=== PATIENT | female | born 1955 | race Caucasian/White ===

== ENCOUNTER 2016-09-11 09:41 | Outpatient (CLI) | payer MEDICARE, BC | END 2016-09-11 09:42 | disposition home or self-care (01) | DX: I10 Essential (primary) hypertension (principal); E78.5 Hyperlipidemia, unspecified; R73.01 Impaired fasting glucose; G35 Multiple sclerosis ==

== ENCOUNTER 2017-01-08 08:00 | Outpatient (CLI) | payer MEDICARE, BC ==
[2017-01-08 17:48] LABS: BILIRUBIN,URINE NEGATIVE (NEGATIVE); PH,URINE 6.5 PH (5.0-7.5)
[2017-01-08 18:21] LABS: WBC,URINE >25 /HPF (0-5)
[2017-01-08 18:22] LABS: UR CULTURE IF IND INDICATED
== END 2017-01-08 08:01 | disposition home or self-care (01) ==
LOC: LAB.F 08:00
PROVIDERS: ATTEND Physician Assistant Medical
DX: N31.9 Neuromuscular dysfunction of bladder, unspecified (principal); N39.0 Urinary tract infection, site not specified
CPT/HCPCS: 81001; 87077; 87086

== ENCOUNTER 2017-01-18 08:15 | Outpatient (CLI) | payer MEDICARE, BC ==
[2017-01-18 11:41] LABS: BILIRUBIN,URINE NEGATIVE (NEGATIVE)
[2017-01-18 12:25] LABS: UR CULTURE IF IND NOT INDICATED; WBC,URINE 0-3 /HPF (0-5)
== END 2017-01-18 08:16 | disposition home or self-care (01) ==
LOC: LAB.F 08:15
PROVIDERS: ATTEND Physician Assistant Medical
DX: N39.0 Urinary tract infection, site not specified (principal)
CPT/HCPCS: 81001; 87086

== ENCOUNTER 2017-06-28 09:40 | Outpatient (CLI) | payer MEDICARE, BC ==
[2017-06-28 17:24] LABS: BILIRUBIN,URINE NEGATIVE (NEGATIVE); GLUCOSE, URINE (UA) NEGATIVE (NEGATIVE); KETONES,URINE (UA) 15 mg/dL (NEGATIVE); LEUKOCYTE ESTERASE, URINE NEGATIVE (NEGATIVE); NITRITE,URINE NEGATIVE (NEGATIVE); OCCULT BLOOD,URINE NEGATIVE (NEGATIVE); PH,URINE 6.5 PH (5.0-7.5); PROTEIN,URINE NEGATIVE (NEGATIVE); UROBILINOGEN,URINE 0.2 (NORMAL) E.U./dL (NORMAL)
[2017-06-28 17:29] LABS: CLARITY,URINE CLEAR (CLEAR)
[2017-06-28 17:30] LABS: BACTERIA,URINE Few /HPF (None Seen); RBC,URINE 0-5 /HPF (0-5); SQUAMOUS EPITHELIAL CELL,UR FEW Squamous (<= Few)
== END 2017-06-28 09:41 | disposition home or self-care (01) ==
LOC: LAB.R 09:40
PROVIDERS: ATTEND Physician Assistant Medical
DX: N39.0 Urinary tract infection, site not specified (principal)
CPT/HCPCS: 81001; 87077; 87086

== ENCOUNTER 2017-08-13 08:00 | Outpatient (CLI) | payer MEDICARE, BC ==
[2017-08-13 17:52] LABS: BILIRUBIN,URINE NEGATIVE (NEGATIVE); GLUCOSE, URINE (UA) NEGATIVE (NEGATIVE); KETONES,URINE (UA) NEGATIVE (NEGATIVE); LEUKOCYTE ESTERASE, URINE TRACE (NEGATIVE); NITRITE,URINE NEGATIVE (NEGATIVE); OCCULT BLOOD,URINE NEGATIVE (NEGATIVE); PROTEIN,URINE NEGATIVE (NEGATIVE); UROBILINOGEN,URINE 0.2 (NORMAL) E.U./dL (NORMAL)
[2017-08-13 18:25] LABS: CLARITY,URINE HAZY (CLEAR); RBC,URINE None Seen /HPF (0-5)
[2017-08-13 18:26] LABS: BACTERIA,URINE Few /HPF (None Seen); SQUAMOUS EPITHELIAL CELL,UR NONE SEEN (<= Few)
== END 2017-08-13 08:01 | disposition home or self-care (01) ==
LOC: LAB.F 08:00
PROVIDERS: ATTEND Physician Assistant Medical
DX: N39.0 Urinary tract infection, site not specified (principal)
CPT/HCPCS: 81001; 87077; 87086

== ENCOUNTER 2017-09-03 11:01 | Outpatient (CLI) | payer MEDICARE, BC ==
--- NOTE | 2017-09-03 12:58 | Ultrasound Report ---
RETROPERITONEAL ULTRASOUND: 09/03/2017 HISTORY: Neurogenic bladder. COMPARISON: 03/09/2016. FINDINGS: Real-time scanning by the wind farm support specialist with saved static images reviewed. FINDINGS: The study is somewhat limited due to the patient's body habitus. Right kidney 10.5 x 5.5 x 4.4 cm. Superior pole cyst 1.1 x 1.1 x 1.2 cm. No definite solid mass, hydronephrosis, or stones. Left kidney 11 x 6.1 x 4.7 cm. No findings of hydronephrosis, stones, or mass. Bilateral ureteral jets are present. Prevoid bladder volume 84 mL. Postvoid bladder volume, not obtained. IMPRESSION: SIMPLE RIGHT RENAL CYST; OTHERWISE NEGATIVE RENAL ULTRASOUND. TD: 09/03/2017 12:58 MTDD
== END 2017-09-03 11:02 | disposition home or self-care (01) ==
LOC: DI 11:01
PROVIDERS: ATTEND Urology
DX: N31.9 Neuromuscular dysfunction of bladder, unspecified (principal); N28.1 Cyst of kidney, acquired
CPT/HCPCS: 76770

== ENCOUNTER 2017-10-12 07:05 | Outpatient (CLI) | payer MEDICARE, BC ==
[2017-10-12 11:52] LABS: BASOPHILS % (AUTO) 0.9 %; EOSINOPHILS # (AUTO) 0.2 10^3/uL (0.0-0.7); EOSINOPHILS % (AUTO) 5.5 %; LYMPHOCYTES # (AUTO) 0.8 10^3/uL (1.5-3.5); LYMPHOCYTES % (AUTO) 19.1 %; MEAN CORPUSCULAR HEMOGLOBIN 32.4 pg (27.0-31.0); MEAN CORPUSCULAR HGB CONC 33.8 g/dL (32.0-36.0); MEAN PLATELET VOLUME 8.5 fL (7.9-10.8); MONOCYTES # (AUTO) 0.5 10^3/uL (0.0-1.0); MONOCYTES % (AUTO) 12.1 %; NEUTROPHILS # (AUTO) 2.6 10^3/uL (1.5-6.6); NEUTROPHILS % (AUTO) 62.4 %; PLT - PLATELET COUNT 308 10^3/uL (130-450); WHITE BLOOD COUNT 4.1 x10^3/uL (4.8-10.8)
[2017-10-12 12:07] LABS: ALBUMIN 4.2 g/dL (3.2-5.5); ALBUMIN/GLOBULIN RATIO 1.2 (1.0-2.2); ALKALINE PHOSPHATASE 62 IU/L (42-121); ALT ALANINE AMINOTRANSFERASE 33 IU/L (10-60); AST ASPARTATE AMINOTRANSFERASE 30 IU/L (10-42); BILIRUBIN,TOTAL 0.9 mg/dL (0.2-1.0); BUN - BLOOD UREA NITROGEN 20 mg/dL (6-20); CALCIUM 9.1 mg/dL (8.5-10.3); CARBON DIOXIDE - CO2 28 mmol/L (21-32); CHLORIDE 97 mmol/L (101-111); CHOL/HDL RATIO 2.4 (<4.4); CHOLESTEROL 208 mg/dL; CREATININE 0.6 mg/dL (0.4-1.0); GFR - MDRD 101 (>89); GLUCOSE 104 mg/dL (70-100); HDL CHOLESTEROL 86 mg/dL; LDL CHOLESTEROL,CALCULATED 108 mg/dL; LDL/HDL RATIO 1.3 (<4.4); SODIUM 134 mmol/L (135-145); TOTAL PROTEIN 7.6 g/dL (6.7-8.2); VLDL CHOLESTEROL 14 mg/dL
[2017-10-12 12:28] LABS: HB2 TOTAL 13.8 g/dL; HEMOGLOBIN A1C 0.51 g/dL; HEMOGLOBIN A1C % 5.5 % (4.6-6.2)
[2017-10-12 12:34] LABS: BILIRUBIN,URINE NEGATIVE (NEGATIVE); GLUCOSE, URINE (UA) NEGATIVE (NEGATIVE); KETONES,URINE (UA) NEGATIVE (NEGATIVE); LEUKOCYTE ESTERASE, URINE NEGATIVE (NEGATIVE); NITRITE,URINE NEGATIVE (NEGATIVE); OCCULT BLOOD,URINE NEGATIVE (NEGATIVE); PROTEIN,URINE NEGATIVE (NEGATIVE); UROBILINOGEN,URINE 0.2 (NORMAL) E.U./dL (NORMAL)
[2017-10-12 12:39] LABS: BACTERIA,URINE None Seen /HPF (None Seen); CLARITY,URINE CLEAR (CLEAR); RBC,URINE None Seen /HPF (0-5); SQUAMOUS EPITHELIAL CELL,UR NONE SEEN (<= Few)
== END 2017-10-12 07:06 | disposition home or self-care (01) ==
LOC: LAB.F 07:05
PROVIDERS: ATTEND Family Medicine
DX: R73.01 Impaired fasting glucose (principal); I10 Essential (primary) hypertension; R31.9 Hematuria, unspecified; E78.5 Hyperlipidemia, unspecified; G35 Multiple sclerosis; Z79.899 Other long term (current) drug therapy
CPT/HCPCS: 36415; 80053; 80061; 81001; 83036; 83721; 85025

== ENCOUNTER 2018-09-01 22:25 | Outpatient (CLI) | payer MEDICARE, BC | END 2018-09-01 22:26 | disposition critical access hospital (66) | LOC: EMS 22:25 | PROVIDERS: ATTEND Surgery | DX: S89.82XA Other specified injuries of left lower leg, initial encounter (principal); R44.8 Other symptoms and signs involving general sensations and perceptions; X50.1XXA Overexertion from prolonged static or awkward postures, initial encounter; Y93.89 Activity, other specified; Y92.009 Unspecified place in unspecified non-institutional (private) residence as the place of occurrence of the external cause | CPT/HCPCS: A0425; A0427 ==

== ENCOUNTER 2018-09-01 22:45 | Inpatient (IN) | payer MEDICARE, BC ==
--- NOTE | 2018-09-01 22:54 | ED Physician Documentation ---
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 No: Weakness, Numbness, Tingling Contributing factors: No: Anticoagulated, Prior ortho surgery, Prosthetic joint, Work related Similar symptoms before: Has not had sx before Recently seen: Not recently seen - Additional information Additional information: getting out of her vehicle, left ankle rolled when she went to bear weight and she fell to ground; sudden onset severe pain and obvious deformity of left ankle/lower leg. Denies any other injury. Denies head injury, denies LOC. Given morphine en route by medics with adequate relief. Review of Systems Cardiac: reports: Reviewed and negative Respiratory: reports: Reviewed and negative GI: reports: Reviewed and negative Skin: reports: Laceration (s) (LLE (per medic report)) Musculoskeletal: reports: Extremity pain, Joint pain, Extremity swelling, Joint swelling, Pain with weight bearing (unable to weight bear LLE). denies: Neck pain, Back pain Neurologic: denies: Generalized weakness, Focal weakness, Numbness PD PAST MEDICAL HISTORY - Past Medical History Past Medical History: Yes Cardiovascular: Hypertension Neuro: Multiple sclerosis - Past Surgical History Past Surgical History: No - Present Medications Home Medications: Ambulatory Orders Medication Instructions Recorded Confirmed Atorvastatin Calcium 40 mg PO DAILY 09/01/18 09/01/18 Baclofen 10 mg PO BID 09/01/18 09/01/18 Dimethyl Fumarate [Tecfidera] 120 mg PO BID 09/01/18 09/01/18 Estradiol [Yuvafem] 1 tab PO DAILY 09/01/18 09/01/18 FLUoxetine [PROzac] 40 mg PO DAILY 09/01/18 09/01/18 Felodipine [Felodipine ER] 5 mg PO DAILY 09/01/18 09/01/18 Gabapentin 300 mg PO TID 09/01/18 09/01/18 Lisinopril/Hydrochlorothiazide 1 tab PO DAILY 09/01/18 09/01/18 [Zestoretic 20-12.5 mg Tablet] Oxybutynin Chloride [Ditropan Xl] 5 mg PO DAILY 09/01/18 09/01/18 - Allergies Allergies/Adverse Reactions: Allergies Allergy/AdvReac Type Severity Reaction Status Date / Time Sulfa (Sulfonamide Allergy Unknown Verified 09/01/18 22:53 Antibiotics) - Living Situation Living Arrangement: reports: At home - Social History Does the pt smoke?: No PD ED PE NORMAL - Vitals Vital signs reviewed: Yes - General General: Alert and oriented X 3, No acute distress, Well developed/nourished - HEENT HEENT: Atraumatic, PERRL, EOMI, Moist mucous membranes - Neck Neck: Supple, no meningeal sign, No bony TTP - Cardiac Cardiac: RRR, No murmur - Respiratory Respiratory: No respiratory distress, Clear bilaterally - Abdomen Abdomen: Soft, Non tender - Derm Derm: Normal color, Warm and dry - Neuro Neuro: Alert and oriented X 3, stator winder 2-12 intact, No motor deficit, No sensory de ficit Eye Opening: Spontaneous Motor: Obeys Commands Verbal: Oriented GCS Score: 15 - Psych Psych: Normal mood, Normal affect PD ED PE EXPANDED - Extremities Extremities: Deformity, Tenderness, Limited ROM, Swelling, Bruising, Left leg, Vascular intact (brisk capillary refill in left toes. strong 2+ left DP pulse. LTS intact in left foot and toes) PATTIE LE visual: 1 - laceration 2 - bruising, swelling, deformity, tenderness Results - Vitals Vitals: Vital Signs - 24 hr 09/01/18 09/01/18 09/02/18 22:48 23:43 00:00 Temperature 35.9 C L Heart Rate 84 84 92 Respiratory 15 16 16 Rate Blood Pressure 153/71 H 135/67 H 135/67 H O2 Saturation 95 94 94 09/02/18 00:30 Temperature Heart Rate 89 Respiratory 14 Rate Blood Pressure 146/81 H O2 Saturation 100 Oxygen O2 Source Nasal cannula - Labs Labs: Laboratory Tests 09/02/18 09/02/18 00:35 00:35 WBC 6.6 RBC 3.27 L Hgb 11.2 L Hct 31.3 L MCV 95.6 MCH 34.1 H MCHC 35.7 RDW 12.5 Plt Count 291 MPV 7.3 L Neut # (Auto) 5.4 Lymph # (Auto) 0.7 L [place] # (Auto) 0.4 Eos # (Auto) 0.1 Baso # (Auto) 0.0 Absolute Nucleated RBC 0.00 Nucleated RBC % 0.0 Sodium 124 L Potassium 3.0 L Chloride 90 L Carbon Dioxide 23 Anion Gap 11.0 BUN 12 Creatinine 0.5 Estimated GFR (MDRD) 124 Glucose 117 H Calcium 8.0 L - Rads (name of study) left tib/fib xrays Radiology: Prelim report reviewed, See rad report Procedures - Splint (location) Lower extremity left Splint applied by: Physician, Tech Type of splint: Fiberglass, Long leg, Posterior Other: Patient tolerated well, No complications, Neurovascular intact, Good alignment PD MEDICAL DECISION MAKING - ED course Complexity details: reviewed results, re-evaluated patient, considered differential, d/w patient ED course: D/W Dr. Rosa (orthopedic surgery director of admissions), who then came to ED, evaluated patient, and took patient to OR. Departure - Departure Disposition: 66 [facility] DC/Xfer Clinical Impression: Open fracture of left tibia and fibula Condition: Stable
[2018-09-01] MEDS ORDERED: MORPHINE 2 MG/ML SYRINGE IVP STA ×2 (22:55→23:47)
[2018-09-01] MEDS: SODIUM CHLORIDE 0.9% 1,000 ML IV STA (23:08)
[2018-09-01] MEDS ORDERED: ceFAZolin 2 GM/50 ML 2 GM/50 ML BAG IV STA (23:31)
--- NOTE | 2018-09-01 23:46 | XRAY Report ---
Reason: injury, deformity Procedure Date: 09/01/2018 Accession Number: [id number] / [id number] Procedure: XR - Tib/Fib LT CPT Code: FULL RESULT: EXAM: LEFT TIBIA/FIBULA RADIOGRAPHY EXAM DATE: 09/01/2018 11:37 PM. CLINICAL HISTORY: Injury. Deformity. COMPARISON: None. TECHNIQUE: 2 views. FINDINGS: Bones: Spiral fracture of the mid to distal shaft of tibia and fibula significant displacement. There is also a displaced proximal fibular shaft fracture. No significant angulation. Joints: Degenerative changes at the knee. Otherwise unremarkable knee and ankle joints. Soft Tissues: Associated soft tissue swelling. IMPRESSION: Displaced fractures of the proximal fibular shaft and distal tibial and fibular shafts. RADIA
[2018-09-01] MEDS ORDERED: ONDANSETRON 4 MG/2 ML VIAL IVP STA (23:47)
[2018-09-02 00:51] LABS: BASOPHILS % (AUTO) 0.6 %; EOSINOPHILS # (AUTO) 0.1 10^3/uL (0.0-0.7); EOSINOPHILS % (AUTO) 0.8 %; HGB - HEMOGLOBIN 11.2 g/dL (12.0-16.0); LYMPHOCYTES # (AUTO) 0.7 10^3/uL (1.5-3.5); LYMPHOCYTES % (AUTO) 10.1 %; MEAN CORPUSCULAR HEMOGLOBIN 34.1 pg (27.0-31.0); MEAN CORPUSCULAR HGB CONC 35.7 g/dL (32.0-36.0); MEAN CORPUSCULAR VOLUME 95.6 fL (81.0-99.0); MEAN PLATELET VOLUME 7.3 fL (7.9-10.8); MONOCYTES # (AUTO) 0.4 10^3/uL (0.0-1.0); MONOCYTES % (AUTO) 6.5 %; NEUTROPHILS # (AUTO) 5.4 10^3/uL (1.5-6.6); PLT - PLATELET COUNT 291 10^3/uL (130-450); RED BLOOD COUNT 3.27 10^6/uL (4.20-5.40); RED CELL DISTRIBUTION WIDTH 12.5 % (12.0-15.0); WHITE BLOOD COUNT 6.6 x10^3/uL (4.8-10.8)
--- NOTE | 2018-09-02 00:51 | CONSULTATION NOTE ---
Referring Provider Name of Referring Provider:: Curtis Wilcox MD Consult Date: 09/02/18 Chief Complaint - Chief Complaint Chief Complaint: Asked to evaluate patient for left tib fib fracture, open History of Present Illness - History Obtained From History obtained from: Dr. Wilcox, patient, chart - History of Present Illness HPI Comment/Other: Sylvia is a 62-year-old female with multiple sclerosis, dense peripheral neuropathy, hypertension, in her usual state of health until late this evening when coming home she tripped going into her house. She sustained an injury to her left leg and was brought to the emergency room. She was found to have reported open tib-fib fracture. Patient states that she lives alone she normally has difficulty ambulating because of her multiple sclerosis and uses either a cane or a walker when she is ambulating. She says she had been drinking alcohol this past evening though her last drink was reportedly around 8 PM. She denies other significant traumatic complaints at this time she does note that she has significant numbness in her feet at a baseline. 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: reports: Hysterectomy, Oophrectomy - POLST Patient has POLST: No Meds/Allgy - Home Medications Home Medications: Ambulatory Orders Medication Instructions Recorded Confirmed Atorvastatin Calcium 40 mg PO DAILY 09/01/18 09/01/18 Baclofen 10 mg PO BID 09/01/18 09/01/18 Dimethyl Fumarate [Tecfidera] 120 mg PO BID 09/01/18 09/01/18 Estradiol [Yuvafem] 1 tab PO DAILY 09/01/18 09/01/18 FLUoxetine [PROzac] 40 mg PO DAILY 09/01/18 09/01/18 Felodipine [Felodipine ER] 5 mg PO DAILY 09/01/18 09/01/18 Gabapentin 300 mg PO TID 09/01/18 09/01/18 Lisinopril/Hydrochlorothiazide 1 tab PO DAILY 09/01/18 09/01/18 [Zestoretic 20-12.5 mg Tablet] Oxybutynin Chloride [Ditropan Xl] 5 mg PO DAILY 09/01/18 09/01/18 - Allergies Allergies/Adverse Reactions: Allergies Allergy/AdvReac Type Severity Reaction Status Date / Time Sulfa (Sulfonamide Allergy Unknown Verified 09/01/18 22:53 Antibiotics) Exam - Vital Signs Vital Signs: Vital Signs x48h Temp Pulse Resp BP Pulse Ox 09/02/18 00:30 89 14 146/81 H 100 09/02/18 00:00 92 16 135/67 H 94 09/01/18 23:43 84 16 135/67 H 94 09/01/18 22:48 35.9 C L 84 15 153/71 H 95 - Physical Exam Comments/Other: Patient is a well-developed 62-year-old female in no acute distress she is cooperative with the exam she is seen and examined in the emergency department [facility]. Patient's left lower extremity shows external rotation of the foot and ankle relative to the knee. There is a small open wound approximately 5 mm x 3 mm or less over the distal third medial tibial face. There is no active bleeding though there is dried blood. There is weakly palpable dorsalis pedis. Cap refill less than 2 seconds digitally. She has dense subjective decreased sensation in the entire foot bilaterally. Foot compartments calf compartments soft. There is obvious deformity at the distal third tib-fib with external rotation and some valgus angulation. Conclusion/Plan - Diagnosis Diagnosis: Left open tib-fib fracture - Plan Plan: Sylvia is a 62-year-old female multiple medical history including multiple sclerosis and hypertension with significant peripheral neuropathy now with a left open distal tib-fib fracture. Discussed the injury with Sylvia talked about the natural history for this type of injury and the potential for short-term and long-term problems. We talked about potential risks with and without surgery. Talked about potential operative risks including but not limited to infection wound problems nerve or blood vessel injury iatrogenic injury bleeding blood loss blood clot blood clot embolus tourniquet complications positioning complications anesthetic complications including but not limited to major cardiovascular neurovascular complications even . We talked about potential iatrogenic injury, length alignment or rotational abnormalities failure to "cure" patient's problem worsening of her condition in any manner need for additional procedures. We discussed the fact of her other wrist not addressed here. Her questions were answered she verbalized understanding above verbalized her wish to proceed with operative treatment. Informed consent was given. We discussed briefly preoperative and postoperative instructions and expectations. We will have appropriate preanesthetic evaluation and plan for emergent surgery. She verbalized understanding agreement satisfaction above plan. Proposed procedure is left distal tib-fib debridement irrigation. Left tibial nailing. Left fibula open reduction internal fixation. - Diagnostic Imaging Results Diagnostic Imaging Results Comments: Tib-fib views left side show comminuted oblique distal third fibula fracture and proximal fibular fracture as well as oblique or spiral distal third tibia fracture with lateral translation and shortening of the distal fragment.
--- NOTE | 2018-09-02 00:53 | ANESTHESIA ---
Pre-Anesthesia VS, & Labs - Diagnosis left tibia fibula fracture - Procedure orif of left tibia fibula fracture Vital Signs: Temp Pulse Resp BP Pulse Ox 35.9 C L 89 14 146/81 H 100 09/01/18 22:48 09/02/18 00:30 09/02/18 00:30 09/02/18 00:30 09/02/18 00:30 Height 5 ft 8 in Weight (kg) 88.451 kg Body Mass Index 29.6 - NPO Other (1800) - Is Patient ?: No Home Medications and Allergies Home Medications: Ambulatory Orders Atorvastatin Calcium 40 mg PO DAILY 09/01/18 Baclofen 10 mg PO BID 09/01/18 Dimethyl Fumarate [Tecfidera] 120 mg PO BID 09/01/18 Estradiol [Yuvafem] 1 tab PO DAILY 09/01/18 FLUoxetine [PROzac] 40 mg PO DAILY 09/01/18 Felodipine [Felodipine ER] 5 mg PO DAILY 09/01/18 Gabapentin 300 mg PO TID 09/01/18 Lisinopril/Hydrochlorothiazide [Zestoretic 20-12.5 mg Tablet] 1 tab PO DAILY 09/01/18 Oxybutynin Chloride [Ditropan Xl] 5 mg PO DAILY 09/01/18 Active Medications Sodium Chloride (Normal Saline 0.9%) 1,000 mls @ 125 mls/hr IV .Q8H STA Stop: 09/02/18 06:54 Last Admin: 09/01/18 23:08 Dose: 125 mls/hr Atorvastatin Calcium 40 mg PO DAILY 09/01/18 Baclofen 10 mg PO BID 09/01/18 Dimethyl Fumarate [Tecfidera] 120 mg PO BID 09/01/18 Estradiol [Yuvafem] 1 tab PO DAILY 09/01/18 FLUoxetine [PROzac] 40 mg PO DAILY 09/01/18 Felodipine [Felodipine ER] 5 mg PO DAILY 09/01/18 Gabapentin 300 mg PO TID 09/01/18 Lisinopril/Hydrochlorothiazide [Zestoretic 20-12.5 mg Tablet] 1 tab PO DAILY 09/01/18 Oxybutynin Chloride [Ditropan Xl] 5 mg PO DAILY 09/01/18 Allergies/Adverse Reactions: Allergies Allergy/AdvReac Type Severity Reaction Status Date / Time Sulfa (Sulfonamide Allergy Unknown Verified 09/01/18 22:53 Antibiotics) Anes History & Medical History - Anesthetic History Anesthesia Complications: reports: No previous complications Family history of Anesthesia Complications: Denies Family history of Malignant Hyperthermia: Denies - Medical History Cardiovascular: reports: Hypertension Endocrine/Autoimmune: reports: Other Smoking Status: Never smoker Psychosocial: reports: Other (multiple sclerosis) Other Past Medical History: urogenic bladder, pt self caths. MS - Surgical History General: Cholecystectomy Gynecologic: Hysterectomy, Oophrectomy Exam General: Alert, Oriented x3, Cooperative, No acute distress Dental: Other (bridges) Mouth Openin Fingerbreadth Neck Mobility: Normal Mallampati classification: III Thyromental Distance: greater than 6 cm Respiratory: Lungs clear, Normal breath sounds, No respiratory distress, No accessory muscle use Cardiovascular: Regular rate, Normal S1, Normal S2, No murmurs Mental/Cognitive Status: Alert/Oriented X3, Normal for patient Plan Anesthesia Type: General Consent for Procedure(s) Verified and Reviewed: Yes Code Status: Attempt Resuscitation ASA classification: 2-Mild systemic disease Is this case an emergency?: Yes
[2018-09-02] MEDS ORDERED: LACTATED RINGERS 1,000 ML IV ONE ×3 (00:55→03:54)
[2018-09-02 00:57] LABS: CREATININE 0.5 mg/dL (0.4-1.0)
[2018-09-02] MEDS ORDERED: SODIUM CHLORIDE FLUSH 0.9% 10 ML SYRINGE IVP SCH (01:00)
[2018-09-02] MEDS ORDERED: ceFAZolin 2 GM/50 ML 2 GM/50 ML BAG IV ONE ×2 (01:00→05:50)
[2018-09-02] MEDS ORDERED: SODIUM CHLORIDE FLUSH 0.9% 10 ML SYRINGE IVP PRN ×2 (01:00→06:47)
[2018-09-02] MEDS ORDERED: MORPHINE 2 MG/ML SYRINGE IVP STA (01:26)
[2018-09-02] MEDS ORDERED: LIDOCAINE-MPF 2% 5 ML VIAL IM ONE (05:50)
[2018-09-02] MEDS ORDERED: ACETAMINOPHEN 1,000 MG/100 ML 100 ML IV ONE (05:50)
[2018-09-02] MEDS ORDERED: ONDANSETRON 4 MG/2 ML VIAL IVP ONE (05:50)
[2018-09-02] MEDS ORDERED: fentaNYL 100 MCG/2 ML VIAL IVP ONE (05:50)
[2018-09-02] MEDS ORDERED: ESMOLOL 100 MG/10 ML VIAL IVP ONE (05:50)
--- NOTE | 2018-09-02 06:46 | IMMEDIATE POSTOPERATIVE NOTE ---
Immediate Postoperative Note - Procedure Note Procedure Date: 09/02/18 Pre-Op Diagnosis: Open left tib-fib fracture Procedure: Left leg debridement and irrigation, tibial nailing, ORIF Fib shaft fractur Post-Op Diagnosis: Same Primary Surgeon: Kyra Rosa Anesthesia Type: General ET tube Complications: No complications Estimated Blood Loss (in cc): 150 Plan of Care: Patient tolerated procedure well instrument and sponge counts correct patient transferred to recovery room in stable condition. Patient will be nonweightbearing left lower extremity. Splint will be kept clean and dry. She will be physical therapy ambulating with assistance and assistive device. She is encouraged to move knee and toes. She would be on perioperative antibiotics for 24 hours analgesic medications and resume home medications. She would be on aspirin for DVT prophylaxis and mechanical DVT prophylaxis.
[2018-09-02] MEDS ORDERED: ONDANSETRON 4 MG/2 ML VIAL IVP PRN (06:47)
[2018-09-02] MEDS ORDERED: PROCHLORPERAZINE 10 MG/2 ML VIAL IVP PRN (06:47)
[2018-09-02] MEDS ORDERED: LABETALOL 20 MG/4 ML SYRINGE IVP ONE (06:56)
[2018-09-02] MEDS: MORPHINE 2 MG/ML SYRINGE IVP PRN ×2 (07:42→20:23)
[2018-09-02] MEDS ORDERED: MORPHINE 2 MG/ML SYRINGE ONE (07:44)
[2018-09-02] MEDS: SODIUM CHLORIDE 0.9% 1,000 ML IV STA (07:46)
[2018-09-02] MEDS: ACETAMINOPHEN 1,000 MG/100 ML 100 ML IV PRN ×2 (08:01→16:52)
--- NOTE | 2018-09-02 08:08 | XRAY Report ---
Reason: FX TIBIA Procedure Date: 09/02/2018 Accession Number: [id number] / [id number] Procedure: FL - OR C-Arm Procedure CPT Code: FULL RESULT: EXAM: FLUOROSCOPIC GUIDANCE EXAM DATE: 09/02/2018 05:36 AM. CLINICAL HISTORY: Fracture tibia. COMPARISON: 09/02/2018 12:55 AM LEG LOWER LT 09/02/2018 12:55 AM LEG LOWER LT 09/01/2018 11:01 PM. FINDINGS: Intraoperative imaging during open reduction internal fixation of distal tibial diaphyseal fracture and segmental fracture of the fibula. IMPRESSION: Fluoroscopic guidance provided for open reduction internal fixation. Total fluoroscopy time: 1.5 minutes. Number of images: 9. RADIA
--- NOTE | 2018-09-02 08:10 | XRAY Report ---
Reason: TIBIA FX SURGERY Procedure Date: 09/02/2018 Accession Number: [id number] / [id number] Procedure: XR - Tib/Fib LT CPT Code: FULL RESULT: EXAM: LEFT TIBIA/FIBULA RADIOGRAPHY EXAM DATE: 09/02/2018 12:55 AM. CLINICAL HISTORY: Tibia fracture surgery. COMPARISON: 09/02/2018 12:55 AM. LEG LOWER LT 09/02/2018 12:55 AM. TECHNIQUE: 2 views. Intraoperative spot films. FINDINGS: Bones: There has been placement of an intramedullary daniela with 2 distal interlocking nails across an oblique distal tibial diaphyseal fracture. Fracture appears in anatomic alignment on the provided spot films. There has been lateral plate and screw fixation of distal fibular diaphyseal fracture which also appears in approximate anatomic alignment. Joints: Visualized ankle joint is grossly unremarkable. Soft Tissues: Mild associated soft tissue swelling. IMPRESSION: Anatomic alignment status post open reduction internal fixation distal tibial and fibular fractures as described. RADIA
[2018-09-02] MEDS: ceFAZolin 2 GM/50 ML 2 GM/50 ML BAG IV SCH ×2 (08:40→14:43)
[2018-09-02] MEDS: ASPIRIN 325 MG TABLET PO SCH ×2 (09:28→17:17)
[2018-09-02] MEDS: HYDROmorphone 1 MG/ML CARPUJECT IVP PRN ×2 (10:36→14:23)
[2018-09-02] MEDS ORDERED: PROPOFOL 200 MG/20 ML VIAL IVP ONE (12:20)
[2018-09-02] MEDS ORDERED: ROCURONIUM 50 MG/5 ML VIAL IVP ONE (12:20)
[2018-09-02] MEDS ORDERED: TETANUS/DIPHTHERIA/PERTUSSIS 0.5 ML SYRINGE IM ONE (12:35)
--- NOTE | 2018-09-02 12:40 | MISCELLANEOUS PROVIDER NOTE ---
Miscellaneous Provider Note - - Note: From Dr. Rosa, per nurse report, request if pt appropriate to have Tdap. I and nurse ask pt when her Tetanus vaccine was. pt state it was long time ago, over 10 yrs, and pt request to have one. Tdap is ordered.
[2018-09-02] MEDS: hydroCHLOROthiazide 12.5 MG CAPSULE PO SCH (14:40)
[2018-09-02] MEDS: LISINOPRIL 20 MG TABLET PO SCH (14:40)
[2018-09-02] MEDS: SODIUM CHLORIDE FLUSH 0.9% 10 ML SYRINGE IVP SCH ×2 (15:23→16:34)
[2018-09-02] MEDS: oxyCODONE 5 MG TABLET PO PRN ×2 (17:17→22:31)
[2018-09-02] MEDS: GABAPENTIN 300 MG CAPSULE PO SCH ×2 (17:21→21:48)
[2018-09-02] MEDS ORDERED: GLYCERIN ADULT SUPP PR ONE (17:58)
[2018-09-02] MEDS: BACLOFEN 10 MG TABLET PO SCH (20:23)
[2018-09-02] MEDS ORDERED: OXYBUTYNIN 5MG TABLET PO SCH (21:00)
[2018-09-02] MEDS: OXYBUTYNIN 15 MG PO SCH (21:47)
[2018-09-02] MEDS: DIMETHYL FUMARATE PO SCH (21:47)
--- NOTE | 2018-09-02 22:05 | PROVIDER PROGRESS NOTE ---
Subjective - Prog Note Date Prog Note Date: 09/02/18 - Subjective Pt reports feeling: Improved (pt seen and examined today, states a bit tired and ankle sore but pain reportedly under control) Objective - Vital Signs/Intake & Output Vital Signs: Vital Signs x48h Temp Pulse Resp BP Pulse Ox 09/02/18 19:00 37.1 C 80 16 148/67 H 96 09/02/18 15:49 36.9 C 78 16 146/70 H 96 09/02/18 14:59 37.3 C 84 16 146/63 H 96 09/02/18 14:55 37.3 C 84 16 146/63 H 96 Intake & Output: Intake & Output 08/30/18 08/31/18 09/01/18 09/02/18 23:59 23:59 23:59 23:59 Intake Total 2720 Output Total 2250 Balance 470 - Lab Results Fish Bones: 09/02/18 00:35 09/02/18 00:35 Other Labs: Lab Results x24hrs 09/02/18 09/02/18 Range/Units 00:35 00:35 WBC 6.6 (4.8-10.8) x10^3/uL RBC 3.27 L (4.20-5.40) 10^6/uL Hgb 11.2 L (12.0-16.0) g/dL Hct 31.3 L (37.0-47.0) % MCV 95.6 (81.0-99.0) fL MCH 34.1 H (27.0-31.0) pg MCHC 35.7 (32.0-36.0) g/dL RDW 12.5 (12.0-15.0) % Plt Count 291 (130-450) 10^3/uL MPV 7.3 L (7.9-10.8) fL Neut # (Auto) 5.4 (1.5-6.6) 10^3/uL Lymph # (Auto) 0.7 L (1.5-3.5) 10^3/uL [place] # (Auto) 0.4 (0.0-1.0) 10^3/uL Eos # (Auto) 0.1 (0.0-0.7) 10^3/uL Baso # (Auto) 0.0 (0.0-0.1) 10^3/uL Absolute Nucleated RBC 0.00 x10^3/uL Nucleated RBC % 0.0 /100WBC Sodium 124 L (135-145) mmol/L Potassium 3.0 L (3.5-5.0) mmol/L Chloride 90 L (101-111) mmol/L Carbon Dioxide 23 (21-32) mmol/L Anion Gap 11.0 (6-13) BUN 12 (6-20) mg/dL Creatinine 0.5 (0.4-1.0) mg/dL Estimated GFR (MDRD) 124 (>89) Glucose 117 H (70-100) mg/dL Calcium 8.0 L (8.5-10.3) mg/dL - Other Results/Comments Other Results/Comments: patient lle in splint, c/d/i. cap refill <2 sec all toes, all toes equally warm b/l. able to move toes up/down within limits of the splint. no sig pain noted with passive toe motion. light touch sensation toes subjective limited but no sig changes from pre-op noted. Assessment/Plan - Problem List (1) Open fracture of left tibia and fibula Impression: patient ortho stable. cont abx 24hrs. cont asa/ mech dvt prophylaxis, splint lle and elevate. nwb lle. oob with PT/OT/nursing with assist and assist device. cont analgesic meds, add anti parkinsons meds/home meds. incentive spirometer q1hr when awake. sw planning possible home with pan washer hand/hhpt vs snf Qualifiers: Encounter type: subsequent encounter Open fracture type: open type I or II Fracture healing: with routine healing Qualified Code(s): S82.202E - Unspecified fracture of shaft of left tibia, subsequent encounter for open fracture type I or II with routine healing; S82.402E - Unspecified fracture of shaft of left fibula, subsequent encounter for open fracture type I or II with routine healing
[2018-09-03] MEDS: ACETAMINOPHEN 325 MG TABLET PO PRN ×6 (00:18→20:19)
[2018-09-03] MEDS: SODIUM CHLORIDE FLUSH 0.9% 10 ML SYRINGE IVP SCH ×4 (00:28→23:32)
[2018-09-03] MEDS: oxyCODONE 5 MG TABLET PO PRN ×5 (03:05→23:32)
[2018-09-03] MEDS: GABAPENTIN 300 MG CAPSULE PO SCH ×3 (06:23→22:26)
[2018-09-03] MEDS: ASPIRIN 325 MG TABLET PO SCH ×2 (09:46→17:10)
[2018-09-03] MEDS: BACLOFEN 10 MG TABLET PO SCH ×2 (09:47→21:15)
[2018-09-03] MEDS: FELODIPINE ER 2.5 MG TABLET PO SCH (09:49)
[2018-09-03] MEDS: LISINOPRIL 20 MG TABLET PO SCH (09:50)
[2018-09-03] MEDS: hydroCHLOROthiazide 12.5 MG CAPSULE PO SCH (09:50)
[2018-09-03] MEDS: DIMETHYL FUMARATE PO SCH ×2 (09:51→21:15)
[2018-09-03] MEDS: OXYBUTYNIN 15 MG PO SCH ×2 (09:51→21:15)
--- NOTE | 2018-09-03 12:16 | PROVIDER PROGRESS NOTE ---
Subjective - Prog Note Date Prog Note Date: 09/03/18 - Subjective Pt reports feeling: Improved (Patient is awake and notes that she is feeling much better today. She says she has some leg and knee soreness but overall improving.) Objective - Vital Signs/Intake & Output Vital Signs: Vital Signs x48h Temp Pulse Pulse Resp BP Pulse Ox 09/03/18 07:39 37.2 C 103 H 16 108/53 L 98 09/03/18 04:45 37.1 C 83 16 111/46 L 98 09/03/18 04:31 37.4 C 91 18 97 Intake & Output: Intake & Output 08/31/18 09/01/18 09/02/18 09/03/18 23:59 23:59 23:59 23:59 Intake Total 2720 540 Output Total 2250 975 Balance 470 -435 - Lab Results Fish Bones: 09/02/18 00:35 09/02/18 00:35 - Other Results/Comments Other Results/Comments: LLE splint and dressing clean dry intact. able to flex and extend toes within limits of splint. no sig pain with prom toes. toes equally warm throughout. cap refill <2 sec great toe. light touch sensation present toes and 1st webspace no sig change. Assessment/Plan - Problem List (1) Open fracture of left tibia and fibula Impression: patient doing well POD 1 s/p left tib/fib open fx, I&D, orif fibula, and tibial nail. recommend continued tx with analgesia prn, cont usual meds, ISq1h, OOB with PT/OT/nursing with assist and assist device prn. SW for dc planning. discussed injury, surgery, treatment, dc planning with patient. questions answered. verb understanding and agreement Qualifiers: Encounter type: subsequent encounter Open fracture type: open type I or II Fracture healing: with routine healing Qualified Code(s): S82.202E - Unspecif ied fracture of shaft of left tibia, subsequent encounter for open fracture type I or II with routine healing; S82.402E - Unspecified fracture of shaft of left fibula, subsequent encounter for open fracture type I or II with routine healing
[2018-09-03] MEDS ORDERED: WHEAT DEXTRIN POWDER PACKET PO PRN (15:04)
[2018-09-03] MEDS: POLYETHYLENE GLYCOL 3350 17 GM PACKET PO SCH (15:25)
[2018-09-03] MEDS: FLUoxetine 10 MG CAPSULE PO SCH (16:33)
[2018-09-03] MEDS: DOCUSATE SODIUM 250 MG CAPSULE PO SCH (16:34)
[2018-09-03 19:16] LABS: BASOPHILS % (AUTO) 0.2 %; EOSINOPHILS # (AUTO) 0.3 10^3/uL (0.0-0.7); EOSINOPHILS % (AUTO) 3.6 %; HGB - HEMOGLOBIN 9.8 g/dL (12.0-16.0); LYMPHOCYTES # (AUTO) 0.4 10^3/uL (1.5-3.5); LYMPHOCYTES % (AUTO) 4.5 %; MEAN CORPUSCULAR HEMOGLOBIN 33.3 pg (27.0-31.0); MEAN CORPUSCULAR HGB CONC 34.1 g/dL (32.0-36.0); MEAN CORPUSCULAR VOLUME 97.8 fL (81.0-99.0); MEAN PLATELET VOLUME 7.6 fL (7.9-10.8); MONOCYTES # (AUTO) 0.9 10^3/uL (0.0-1.0); MONOCYTES % (AUTO) 9.2 %; NEUTROPHILS # (AUTO) 7.8 10^3/uL (1.5-6.6); NEUTROPHILS % (AUTO) 82.5 %; PLT - PLATELET COUNT 245 10^3/uL (130-450); RED BLOOD COUNT 2.95 10^6/uL (4.20-5.40); RED CELL DISTRIBUTION WIDTH 12.6 % (12.0-15.0); WHITE BLOOD COUNT 9.5 x10^3/uL (4.8-10.8)
[2018-09-03 19:25] LABS: CALCIUM 8.2 mg/dL (8.5-10.3); CREATININE 0.8 mg/dL (0.4-1.0)
[2018-09-03] MEDS: POTASSIUM CHLORIDE 20 MEQ/15 ML UDC PO SCH ×3 (21:15→23:15)
[2018-09-04] MEDS: oxyCODONE 5 MG TABLET PO PRN (04:06)
[2018-09-04] MEDS: GABAPENTIN 300 MG CAPSULE PO SCH (05:47)
[2018-09-04] MEDS ORDERED: BISACODYL 10 MG SUPP PR ONE (07:34)
[2018-09-04] MEDS: ASPIRIN 325 MG TABLET PO SCH (07:53)
[2018-09-04] MEDS: BACLOFEN 10 MG TABLET PO SCH (07:53)
[2018-09-04] MEDS: FLUoxetine 10 MG CAPSULE PO SCH (07:53)
[2018-09-04] MEDS: FELODIPINE ER 2.5 MG TABLET PO SCH (07:53)
[2018-09-04] MEDS: hydroCHLOROthiazide 12.5 MG CAPSULE PO SCH (07:54)
[2018-09-04] MEDS: DOCUSATE SODIUM 250 MG CAPSULE PO SCH (07:54)
[2018-09-04] MEDS: ACETAMINOPHEN 325 MG TABLET PO PRN (07:54)
[2018-09-04] MEDS: LISINOPRIL 20 MG TABLET PO SCH (07:55)
[2018-09-04] MEDS: POLYETHYLENE GLYCOL 3350 17 GM PACKET PO SCH (07:55)
[2018-09-04] MEDS: SODIUM CHLORIDE FLUSH 0.9% 10 ML SYRINGE IVP SCH (08:00)
[2018-09-04] MEDS: OXYBUTYNIN 15 MG PO SCH (08:00)
[2018-09-04] MEDS: DIMETHYL FUMARATE PO SCH (08:00)
[2018-09-04 08:03] VITALS: BP 137/58
[2018-09-04] MEDS ORDERED: FLUoxetine 10 MG CAPSULE PO SCH (09:00)
--- NOTE | 2018-09-04 10:09 | PROVIDER PROGRESS NOTE ---
Subjective - Prog Note Date Prog Note Date: 09/04/18 - Subjective Pt reports feeling: Improved (patient feeling ok. says just a bit sore around the left knee. says just wants to figure out logistical things prior to expected discharge.) Objective - Vital Signs/Intake & Output Vital Signs: Vital Signs x48h Temp Pulse Resp BP Pulse Ox 09/04/18 08:03 37.3 C 104 H 16 137/58 H 95 09/04/18 04:50 37.2 C 92 18 114/38 L 97 Intake & Output: Intake & Output 09/01/18 09/02/18 09/03/18 09/04/18 23:59 23:59 23:59 23:59 Intake Total 2720 1525 700 Output Total 2250 1875 650 Balance 470 -350 50 - Lab Results Fish Bones: 09/03/18 19:10 09/03/18 19:10 Other Labs: Lab Results x24hrs 09/03/18 09/03/18 Range/Units 19:10 19:10 WBC 9.5 (4.8-10.8) x10^3/uL RBC 2.95 L (4.20-5.40) 10^6/uL Hgb 9.8 L (12.0-16.0) g/dL Hct 28.9 L (37.0-47.0) % MCV 97.8 (81.0-99.0) fL MCH 33.3 H (27.0-31.0) pg MCHC 34.1 (32.0-36.0) g/dL RDW 12.6 (12.0-15.0) % Plt Count 245 (130-450) 10^3/uL MPV 7.6 L (7.9-10.8) fL Neut # (Auto) 7.8 H (1.5-6.6) 10^3/uL Lymph # (Auto) 0.4 L (1.5-3.5) 10^3/uL [place] # (Auto) 0.9 (0.0-1.0) 10^3/uL Eos # (Auto) 0.3 (0.0-0.7) 10^3/uL Baso # (Auto) 0.0 (0.0-0.1) 10^3/uL Absolute Nucleated RBC 0.00 x10^3/uL Nucleated RBC % 0.0 /100WBC Sodium 134 L (135-145) mmol/L Potassium 3.1 L (3.5-5.0) mmol/L Chloride 95 L (101-111) mmol/L Carbon Dioxide 30 (21-32) mmol/L Anion Gap 9.0 (6-13) BUN 12 (6-20) mg/dL Creatinine 0.8 (0.4-1.0) mg/dL Estimated GFR (MDRD) 72 L (>89) Glucose 144 H (70-100) mg/dL Calcium 8.2 L (8.5-10.3) mg/dL - Other Results/Comments Other Results/Comments: LLE: able to flex ex toes with good comfort. toes equally warm throughout. sensation to light touch unchanged. splint and dressing clean dry intact. Assessment/Plan - Problem List (1) Open fracture of left tibia and fibula Impression: patient doing well s/p left leg I & D, ORIF fibula, tibial nail. potassium supplemented. PT planned. SW planning dc to home with HH. wheelchair and BSC in process. will order front wheeled walker. plan for dc to home pending PT safe for home environment. patient also to have bm (normally manual at home) and cont self cath. follow-up 5-7 days or sooner prn. pain med rx to be prescribed. recommend otc bowl regimen and asa/dvt prophylaxis. advised to keep splint clean dry intact. 96hr attestation: Patient is expected to be discharged or transferred within 96hours of admission. Qualifiers: Encounter type: subsequent encounter Open fracture type: open type I or II Fracture healing: with routine healing Qualified Code(s): S82.202E - Unspecified fracture of shaft of left tibia, subsequent encounter for open fracture type I or II with routine healing; S82.402E - Unspecified fracture of shaft of left fibula, subsequent encounter for open fracture type I or II with routine healing
--- NOTE | 2018-09-04 10:43 | Discharge Plan ---
Discharge Plan Disposition: Home Health Service Condition: Stable Prescriptions: oxyCODONE [Roxicodone] 5 mg PO Q4HR PRN #30 tablet PRN Reason: Pain Aspirin [Leandra] 325 mg PO BIDWM #60 tablet Diet: Regular Activity Restrictions: NWB LLE, ASSIST AND ASSIST DEVICE PRN Shower Restrictions: Yes (KEEP LEFT LEG SPLINT CLEAN DRY INTACT) No Smoking: If you smoke, Please STOP! Call for help.
--- NOTE | 2018-09-05 11:33 | OPERATIVE REPORT ---
DATE OF SERVICE: 09/02/2018 Physician: Akash Rosa MD SURGEON: Akash Rosa MD. BLOCKER HEATED METAL FORMS: None. ANESTHESIOLOGIST: Kolby Perera MD. ANESTHESIA TYPE: General endotracheal. FLUIDS: 1800 mL lactated Ringer's. PREOPERATIVE ANTIBIOTICS: 2 grams of weight-based IV Ancef. COMPRESSION DEVICE: Contralateral right calf SCD boot. URINE OUTPUT: 200 mL ESTIMATED BLOOD LOSS: 150 mL ORTHOPEDIC IMPLANTS 1. DePuy versanail 34.5 x 11 mm tibia with associated 2 proximal and 2 distal locking bolts. 2. Small fragment recon plate 7-hole with combination 6 locking and nonlocking screws as well as 2 interfragmentary screws from small fragment set outside of plate. PREOPERATIVE DIAGNOSIS: Left type 1 open tibia spiral fracture with associated fibular shaft fracture comminuted at the same level. POSTOPERATIVE DIAGNOSIS: Left type 1 open tibia spiral fracture with associated fibular shaft fracture comminuted at the same level. PROCEDURES 1. Left tibia debridement and irrigation of soft tissue fat and bone. 2. Left tibia intramedullary nail placement. 3. Left fibula shaft open reduction internal fixation. HISTORY OF PRESENT ILLNESS AND INDICATIONS: Patient is a 62-year-old female with multiple medical history, including multiple sclerosis and significant peripheral neuropathy, who was getting out of her car going into her house, tripped and fell, sustaining an open tib-fib fracture, left side. She was seen in the emergency department, and they indicated for emergent procedure. Please see risks, benefits, alternatives discussed. We did discuss pros and cons of operative versus nonoperative treatment. Risks, benefits, alternatives. We did talk about potential risks, including but not limited to infection, wound problems, nerve or blood vessel injury, numbness, tingling, weakness, pain, stiffness, decreased range of motion, decreased strength, decreased function, worsening condition, failure to "cure" patient's problem, iatrogenic injury, bleeding, blood loss, blood clot, blood clot embolus, positioning complications, tourniquet complications, or anesthetic complications, including but not limited to major cardiovascular or neurovascular complication and even . We talked about the particular specific increased risks with open fractures and the potential for need for repeat surgery, failure of the surgery, potential partial limb loss. She verbalized understanding of the above and verbalized her wish to proceed with operative treatment. Informed consent was given. INTRAOPERATIVE FINDINGS: Patient was found to have a type 1 open wound medial tibial face, which is less than 1 cm in length; though with extension, there was noted to be soft tissue injury adjacent to this proximally and distally by 1 to 2 cm in each direction with associated soft tissue violation all the way to the bone. Once the injured tissue was debrided, there was healthy tissue adjacent to this. The tibia reduced to a near anatomic position, as did the fibula despite the comminution. There was appropriate length, alignment and rotation of the leg post-procedure. PROCEDURE: On 09/02/2018, patient identified in the ER and then ultimately in the area just outside the operating room, where she identifies her left tibia as operative site. She is brought into the operating room. General anesthesia is administered. The patient is placed in a safe supine position with head, neck and extremities in comfortable and safe position to avoid peripheral nerve stretch and compression. Patient received additional preoperative antibiotics, though she did previously receive antibiotics in the ER. Patient then had left lower extremity pre-scrubbed with Hibiclens solution and then prepped and draped in the usual sterile fashion. This is after general anesthesia is administered. At this time, surgical pause identifies left leg as operative site. At this point, the tibial wound is extended proximally and distally and the wound itself skin edges are ellipsed out sharply. At this point, debridement using sharp dissection as well as rongeur and curette carried out down to the bone with curetting of the bone and then pulsatile lavage for 6 liters interspersed with repeat debridement carries out the debridement of the tibial wound to fresh healthy tissue. This is again copiously irrigated and then reexamined and noted to have good peripheral healthy tissue edges. At this point, a moist Ray-Syeda is kept here as attention is directed towards fibular open reduction internal fixation. The previous instruments are set aside, and then new instruments are used for the lateral incision, which is made over the fibular fracture. Skin incision is made through skin and spreading dissection carried out, though the superficial peroneal nerve is identified and protected. The comminuted fibula fracture is identified and then copiously irrigated. The hematoma is debrided and the periosteum debrided from the edges of the fracture, and then reduction is achieved using 2 reduction clamps. Once this is confirmed to be acceptable, reduction near anatomic radiographically and visually, then 2 anterior to posterior lag screws are placed in standard AO technique, achieving the majority of the fixation. A neutralization recon plate is contoured, and a 7-hole recon plate is then clamped into place, confirmed to be acceptable not only visually but fluoroscopically, and then initially 2 nonlocking screws are placed adjacent to the fracture on either side, and then additional locking screws are placed in the remaining holes. At this point, the wound is copiously irrigated and then confirmed to have acceptable position with fracture evaluated via fluoroscopic imaging, at which point the Vicryl sutures are used to provisionally close the skin with a moist Ray-Syeda such that attention could be directed towards tibial nailing. At this point, a radiolucent triangle is used, and then C-arm fluoroscopy in multiple planes is used to identify appropriate starting position of the tibia after a medial peripatellar tendon incision is made through skin, spreading dissection carried out to the retinaculum adjacent to the tendon, and this is incised. The guide pin has been brought to the appropriate starting point. The anterior corner of the tibia centrally placed. This is followed by hand reaming to enter the canal, followed by placement of a ball-tipped guidewire. At this point, the fracture site is accessed through the open wound, and a clamp is placed to reduce the fracture to a near anatomic position. Though it is spiral fracture, there is some comminution noted. The major fracture fragments are reduced near anatomically. This is held, and a ball-tipped guidewire is placed all the way distal. This is then measured, and the closest appropriate size nail is selected with regards to length. At this point, sequential reaming with soft tissue protecting goes up to a size 12, such that a size 11 nail would be placed. The 12 mm had appropriate chatter. At this point, the nail is selected and then placed over the ball-tipped guidewire and seated to the appropriate depth. The guidewire is removed, and then using the guide system for the proximal locking bolts, two small incisions are made proximally and crossing proximal locking bolts are placed to the appropriate length. This is after drilling and screwing them into place. At this time, the proximal guide is removed and then a lateral image of the tibia is taken using "perfect circles," and 2 medial to lateral locking bolts are placed in a distal locking position using perfect [place] technique. These are kept short of the distal tib-fib joint. At this point, clamps are removed, and the fracture is noted to remain in a near anatomically reduced position on the tibia. At this point, all wounds are copiously irrigated. At this point, the wounds are closed. The knee incision closed using 0 Vicryl for the retinacular sutures and then 0 Vicryl, 2-0 Vicryl, and interrupted nylon suture. Lateral wound is closed using 0 Vicryl; again, taking care to avoid encumbrance of the superficial peroneal nerve, 2-0 Vicryl and then interrupted nylon suture. At this point, the open tibial wound area is closed using PDS suture for a subcuticular layer, which reapposed of the skin edges, followed by a 2-0 nylon suture, bringing the skin edges together with slight eversion. The skin edges are closed without undue tension. At this point, the wounds are all washed, dried, Xeroform dressing applied on all wounds, including the locking bolt wounds, which were closed using nylon suture and 2-0 Vicryl, and then 4 x 4's are placed and Sof-Rol is placed, and the patient placed in a well-padded AO posterior splint with double-J plaster. This is kept in neutral. The patient tolerated the procedure well. Instrument and sponge counts are correct. Patient is transferred to recovery room. The patient will be on perioperative antibiotics for 24 hours, Aspirin for DVT prophylaxis, mechanical DVT prophylaxis as well. Should resume her normal home medications, be on appropriate analgesic medications. Patient will be nonweightbearing on left lower extremity. She would use physical therapy assistance and assist device as necessary, occupational therapy, and social work. Once successful in physical therapy and safe for home environment, barring any other medical or surgical history, she would be expected to be discharged either to home with home health assistance as necessary or longterm facility as appropriate. TD: 09/05/2018 08:54 BILL
--- NOTE | 2018-09-08 09:49 | DISCHARGE SUMMARY ---
"Discharge Summary Admit Date: 09/02/18 Discharge Date: 09/04/18 Discharging Provider: Kyra Rosa MD Primary Care Provider: Taisha Nathan PAC Code Status: Attempt Resuscitation Condition at Discharge: Stable Discharge Disposition: [facility] - DIAGNOSES Admission Diagnoses: Left open tibia/fibula fracture Multiple sclerosis, hypertension, chronic bowel and bladder dysfunction, please see medical record for further presenting diagnoses Discharge Diagnoses with Status of Each Condition: Open tibia/fibular fracture status post debridement irrigation, tibial nailing, open reduction internal fixation fibular fracture, stable Remaining diagnoses unchanged. - HPI History of Present Illness: In brief patient is a 62-year-old female with multiple medical history who sustained an open left tib-fib fracture. She presented to the emergency room for evaluation and treatment. Of note she has multiple sclerosis, lives alone, ambulates with assistive device such as cane, walker or sometimes without assistive device. She lives alone. Please see initial history and physical for further details. - CONSULTS | PROCEDURES Consultations: Social work, physical therapy, Informal Hospitalist consultation Procedures: Left tibia debridement and irrigation, left tibia intramedullary nailing, left fibula open reduction internal fixation - HOSPITAL COURSE Hospital Course: Patient progressed well from an orthopedic standpoint. She progressed with physical therapy and her ability to ambulate and transfer with assistive device. Patient initially had some chemistry abnormalities which were corrected. Patient was on initial 24 hours antibiotics IV, she was on perioperative DVT prophylaxis with mechanical SCD boots and chemical aspirin twice daily. She continued treatment with her baseline medications for her baseline medical conditions. Please see EMR for further details. - ALLERGIES Allergies/Adverse Reactions: Allergies Allergy/AdvReac Type Severity Reaction Status Date / Time Sulfa (Sulfonamide Allergy Unknown Verified 09/07/18 04:59 Antibiotics) - MEDICATIONS Home Medications: Ambulatory Orders Medication Instructions Recorded Confirmed Atorvastatin Calcium 40 mg PO DAILY 09/01/18 09/07/18 Baclofen 10 mg PO BID 09/01/18 09/07/18 Dimethyl Fumarate [Tecfidera] 120 mg PO BID 09/01/18 09/07/18 Estradiol [Yuvafem] 10 mcg PV .BIW 09/01/18 09/07/18 FLUoxetine [PROzac] 40 mg PO DAILY 09/01/18 09/07/18 Felodipine [Felodipine ER] 5 mg PO DAILY 09/01/18 09/07/18 Gabapentin 300 mg PO TID 09/01/18 09/07/18 Lisinopril/Hydrochlorothiazide 1 tab PO DAILY 09/01/18 09/07/18 [Zestoretic 20-12.5 mg Tablet] Calcium Polycarbophil 625 mg PO BID 09/02/18 09/07/18 Cranberry 500 mg PO BID 09/02/18 09/07/18 Docusate Sodium 250Mg Capsule 250 mg PO DAILY 09/02/18 09/07/18 [Colace 250Mg Capsule] Multivitamin [Theragran] 1 each PO DAILY 09/02/18 09/07/18 Oxybutynin Chloride [Ditropan Xl] 15 mg PO BID 09/02/18 09/07/18 Senna [Senokot] 17.2 mg PO BID PRN 09/02/18 09/07/18 Aspirin [Leandra] 325 mg PO BIDWM #60 tablet 09/04/18 09/07/18 oxyCODONE [Roxicodone] 5 mg PO Q4HR PRN #30 tablet 09/04/18 09/07/18 Cephalexin [Keflex] 500 mg PO Q6H #28 capsule 09/07/18 Home Medications Other | Comments: Patient to be on aspirin twice daily DVT prophylaxis times 4 weeks. - PHYSICAL EXAM AT DISCHARGE General Appearance: positive: No acute distress (Please see progress note entered under separate cover, in brief left lower extremity dressing and splint clean dry and intact. Patient neurovascular unchanged distally left lower extremity.) - LABS Result Diagrams: 09/03/18 19:10 09/03/18 19:10 - FOLLOW UP Follow Up: Follow-up 5-7 days orthopedic clinic or sooner on an as-needed basis. Regular medical treatments and follow-up with primary care practitioner per usual. Patient would be discharged to home with home health physical therapy as well as friends/family support. This would be pending demonstrates safety with physical therapy for home environment. Patient also would have hard goods such as commode wheelchair and walker available. Plan discussed with patient prior to discharge. Questions answered. Patient in general agreement. Patient would notify orthopedic clinic prior to follow-up visit should problems questions or worsening of condition arise."
== END 2018-09-04 12:00 | disposition home health service (06) | DRG 494 ==
LOC: EDUNIT# → ED 22:45 → MS3 09-02 01:00 → MS2 09-02 07:21
PROVIDERS: ADMIT Orthopaedic Surgery Sports Medicine; ATTEND Orthopaedic Surgery Sports Medicine
PROC: 0QSH06Z Reposition Left Tibia with Intramedullary Internal Fixation Device, Open Approach (ICD-10-PCS; principal; 2018-09-04)
PROC: 0QSK04Z Reposition Left Fibula with Internal Fixation Device, Open Approach (ICD-10-PCS; 2018-09-04)
DX: S82.302B Unspecified fracture of lower end of left tibia, initial encounter for open fracture type I or II (principal); S82.832B Other fracture of upper and lower end of left fibula, initial encounter for open fracture type I or II; S82.202B Unspecified fracture of shaft of left tibia, initial encounter for open fracture type I or II; S82.402B Unspecified fracture of shaft of left fibula, initial encounter for open fracture type I or II; X58.XXXA Exposure to other specified factors, initial encounter; G62.9 Polyneuropathy, unspecified; K21.9 Gastro-esophageal reflux disease without esophagitis; N31.9 Neuromuscular dysfunction of bladder, unspecified; Z90.49 Acquired absence of other specified parts of digestive tract; Z90.710 Acquired absence of both cervix and uterus; Z90.721 Acquired absence of ovaries, unilateral; I10 Essential (primary) hypertension; G35 Multiple sclerosis; Z88.2 Allergy status to sulfonamides; K63.9 Disease of intestine, unspecified
CPT/HCPCS: 29505; 36415; 73590; 80048; 85025; 90715; 96365; 96375; 97161; 97165; 97530; 99283; 99284; A9270; C1713; J0131; J0690; J1170; J2270; J7120

== ENCOUNTER 2018-09-07 04:30 | Outpatient (CLI) | payer MEDICARE, BC | END 2018-09-07 04:31 | disposition critical access hospital (66) | LOC: EMS 04:30 | PROVIDERS: ATTEND Surgery | DX: R39.89 Other symptoms and signs involving the genitourinary system (principal); M54.9 Dorsalgia, unspecified; M79.661 Pain in right lower leg; M79.662 Pain in left lower leg; G35 Multiple sclerosis | CPT/HCPCS: A0425; A0429 ==

== ENCOUNTER 2018-09-07 04:50 | Emergency (ER) | payer MEDICARE, BC ==
--- NOTE | 2018-09-07 04:56 | ED Physician Documentation ---
PD HPI FEMALE - Stated complaint Stated Complaint: FEM - History obtained from History obtained from: Patient, EMS - History of Present Illness Timing - onset: Yesterday Timing - details: Gradual onset Pain level max: 9 Associated symptoms: Back pain, Other ("bladder spasming" (per patient)). No: Fever Recently seen: Emergency Dept, Admitted, Surgery - Additional information Additional information: d/c from [facility] on Wednesday (09/04) after ORIF of LLE tib/fib open fracture. She has MS and self-catheterizes (for many years); she presents at this time because she feels symptoms c/w previous bladder infection since yesterday. Specifically, she feels her bladder is "spasming" and bilateral low back pain. She also c/o pain just caudal to right knee (proximal anterior tibial surface) since leaving the hospital. She also c/o constipation. She is also concerned that she isn't getting around at home properly (she feels she is putting too much strain on her RLE) . Review of Systems Constitutional: denies: Fever, Chills, Sweats Cardiac: reports: Reviewed and negative Respiratory: reports: Reviewed and negative GI: reports: Constipation. denies: Abdominal Pain : reports: Other ("bladder spasms" (per patient)). denies: Dysuria Musculoskeletal: reports: Back pain (bilateral low back pain), Extremity pain (right knee/anterior proximal tibial region; LLE post-operative pain), Pain with weight bearing (RLE (she is non-weight bearing LLE)) PD PAST MEDICAL HISTORY - Past Medical History Cardiovascular: Hypertension Neuro: Multiple sclerosis Endocrine/Autoimmune: Other GI: GERD [employer]: Other : Other Psych: None Musculoskeletal: Chronic back pain, Other - Past Surgical History Past Surgical History: No General: Cholecystectomy Ortho: Other /[employer]: Hysterectomy, Oophrectomy - Present Medications Home Medications: Ambulatory Orders Medication Instructions Recorded Confirmed Atorvastatin Calcium 40 mg PO DAILY 09/01/18 09/07/18 Baclofen 10 mg PO BID 09/01/18 09/07/18 Dimethyl Fumarate [Tecfidera] 120 mg PO BID 09/01/18 09/07/18 Estradiol [Yuvafem] 10 mcg PV .BIW 09/01/18 09/07/18 FLUoxetine [PROzac] 40 mg PO DAILY 09/01/18 09/07/18 Felodipine [Felodipine ER] 5 mg PO DAILY 09/01/18 09/07/18 Gabapentin 300 mg PO TID 09/01/18 09/07/18 Lisinopril/Hydrochlorothiazide 1 tab PO DAILY 09/01/18 09/07/18 [Zestoretic 20-12.5 mg Tablet] Calcium Polycarbophil 625 mg PO BID 09/02/18 09/07/18 Cranberry 500 mg PO BID 09/02/18 09/07/18 Docusate Sodium 250Mg Capsule 250 mg PO DAILY 09/02/18 09/07/18 [Colace 250Mg Capsule] Multivitamin [Theragran] 1 each PO DAILY 09/02/18 09/07/18 Oxybutynin Chloride [Ditropan Xl] 15 mg PO BID 09/02/18 09/07/18 Senna [Senokot] 17.2 mg PO BID PRN 09/02/18 09/07/18 Aspirin [Leandra] 325 mg PO BIDWM #60 tablet 09/04/18 09/07/18 oxyCODONE [Roxicodone] 5 mg PO Q4HR PRN #30 tablet 09/04/18 09/07/18 Cephalexin [Keflex] 500 mg PO Q6H #28 capsule 09/07/18 - Allergies Allergies/Adverse Reactions: Allergies Allergy/AdvReac Type Severity Reaction Status Date / Time Sulfa (Sulfonamide Allergy Unknown Verified 09/07/18 04:59 Antibiotics) - Social History Does the pt smoke?: No Smoking Status: Never smoker Does the pt drink ETOH?: Yes - Immunizations Immunizations are current?: Yes - POLST Patient has POLST: No PD ED PE NORMAL - Vitals Vital signs reviewed: Yes - General General: Alert and oriented X 3, No acute distress, Well developed/nourished - HEENT HEENT: Moist mucous membranes - Cardiac Cardiac: RRR, No murmur - Respiratory Respiratory: No respiratory distress, Clear bilaterally - Abdomen Abdomen: Normal bowel sounds, Soft, Non tender, Non distended - Back Back: No spinal TTP, Other (mild bilateral echymosis lower back (bilateral paralumbar without bony or midline tenderness)) - Derm Derm: Warm and dry, No rash - Extremities Extremities: Other (LLE with cast/connor in place. toes are visible and there is LTS intact with brisk capillary refill. right knee has FROM but pain with extreme flexion. no bony tenderness, no swelling/effusion) - Neuro Neuro: Alert and oriented X 3, Normal speech Eye Opening: Spontaneous Motor: Obeys Commands Verbal: Oriented GCS Score: 15 Results - Vitals Vitals: Vital Signs - 24 hr 09/07/18 09/07/18 04:51 07:14 Temperature 36.1 C L 36.5 C Heart Rate 105 H 101 H Respiratory 20 16 Rate Blood Pressure 157/72 H 154/59 H O2 Saturation 98 97 Oxygen O2 Source Room air - Labs Labs: Laboratory Tests 09/07/18 09/07/18 09/07/18 05:20 05:20 05:20 WBC 5.4 RBC 2.97 L Hgb 9.8 L Hct 29.0 L MCV 97.8 MCH 33.2 H MCHC 33.9 RDW 12.7 Plt Count 438 MPV 7.5 L Neut # (Auto) 3.6 Lymph # (Auto) 0.5 L Edwards # (Auto) 0.7 Eos # (Auto) 0.6 Baso # (Auto) 0.0 Absolute Nucleated RBC 0.00 Nucleated RBC % 0.0 Sodium 137 Potassium 3.7 Chloride 97 L Carbon Dioxide 26 Anion Gap 14.0 H BUN 17 Creatinine 0.6 Estimated GFR (MDRD) 101 Glucose 110 H Lactic Acid Calcium 9.4 Urine Color YELLOW Urine Clarity CLEAR Urine pH 6.0 Ur Specific [place] 1.020 Urine Protein NEGATIVE Urine Glucose (UA) NEGATIVE Urine Ketones 40 H Urine Occult Blood NEGATIVE Urine Nitrite NEGATIVE Urine Bilirubin NEGATIVE Urine Urobilinogen 0.2 (NORMAL) Ur Leukocyte Esterase SMALL H Urine RBC None Seen Urine WBC 6-10 H Ur Squamous Epith Cells MANY Squamous H Urine Bacteria Few Ur Microscopic Review INDICATED Urine Culture Comments NOT INDICATED 09/07/18 05:35 WBC RBC Hgb Hct MCV MCH MCHC RDW Plt Count MPV Neut # (Auto) Lymph # (Auto) Edwards # (Auto) Eos # (Auto) Baso # (Auto) Absolute Nucleated RBC Nucleated RBC % Sodium Potassium Chloride Carbon Dioxide Anion Gap BUN Creatinine Estimated GFR (MDRD) Glucose Lactic Acid 0.7 Calcium Urine Color Urine Clarity Urine pH Ur Specific [place] Urine Protein Urine Glucose (UA) Urine Ketones Urine Occult Blood Urine Nitrite Urine Bilirubin Urine Urobilinogen Ur Leukocyte Esterase Urine RBC Urine WBC Ur Squamous Epith Cells Urine Bacteria Ur Microscopic Review Urine Culture Comments PD MEDICAL DECISION MAKING - ED course Complexity details: reviewed old records, reviewed results, re-evaluated patient, considered differential, d/w patient ED course: UA s/o mild UTI, given IV rocephin and will d/c with keflex rx. Initially, plan was to have SW consult in AM to discuss optimizing post-hospital care and what options are available. However, after tests resulted, patient said she preferred to be discharged. She says friends will come to pick her up, and that she actually will be able to get into assisted living at [facility] later today. Dr. Wisdom came to ED and also talked with patient. Departure - Departure Disposition: 01 Home, Self Care Clinical Impression: Urinary tract infection Condition: Good Instructions: ED UTI Cystitis Female Follow-Up: Jamir Medina MD [Primary Care Provider] - Prescriptions: Cephalexin [Keflex] 500 mg PO Q6H #28 capsule Discharge Date/Time: 09/07/18 08:08
[2018-09-07 05:41] LABS: CALCIUM 9.4 mg/dL (8.5-10.3); CREATININE 0.6 mg/dL (0.4-1.0)
[2018-09-07 05:44] LABS: BILIRUBIN,URINE NEGATIVE (NEGATIVE); GLUCOSE, URINE (UA) NEGATIVE (NEGATIVE); KETONES,URINE (UA) 40 mg/dL (NEGATIVE); LEUKOCYTE ESTERASE, URINE SMALL (NEGATIVE); NITRITE,URINE NEGATIVE (NEGATIVE); OCCULT BLOOD,URINE NEGATIVE (NEGATIVE); PROTEIN,URINE NEGATIVE (NEGATIVE); UROBILINOGEN,URINE 0.2 (NORMAL) E.U./dL (NORMAL)
[2018-09-07 05:57] LABS: CLARITY,URINE CLEAR (CLEAR); RBC,URINE None Seen /HPF (0-5); SQUAMOUS EPITHELIAL CELL,UR MANY Squamous (<= Few)
[2018-09-07 05:58] LABS: BACTERIA,URINE Few /HPF (None Seen); BASOPHILS % (AUTO) 0.4 %; EOSINOPHILS # (AUTO) 0.6 10^3/uL (0.0-0.7); EOSINOPHILS % (AUTO) 11.1 %; HGB - HEMOGLOBIN 9.8 g/dL (12.0-16.0); LYMPHOCYTES # (AUTO) 0.5 10^3/uL (1.5-3.5); LYMPHOCYTES % (AUTO) 9.2 %; MEAN CORPUSCULAR HEMOGLOBIN 33.2 pg (27.0-31.0); MEAN CORPUSCULAR HGB CONC 33.9 g/dL (32.0-36.0); MEAN CORPUSCULAR VOLUME 97.8 fL (81.0-99.0); MEAN PLATELET VOLUME 7.5 fL (7.9-10.8); MONOCYTES # (AUTO) 0.7 10^3/uL (0.0-1.0); MONOCYTES % (AUTO) 13.6 %; NEUTROPHILS # (AUTO) 3.6 10^3/uL (1.5-6.6); NEUTROPHILS % (AUTO) 65.7 %; PLT - PLATELET COUNT 438 10^3/uL (130-450); RED BLOOD COUNT 2.97 10^6/uL (4.20-5.40); RED CELL DISTRIBUTION WIDTH 12.7 % (12.0-15.0); WHITE BLOOD COUNT 5.4 x10^3/uL (4.8-10.8)
[2018-09-07] MEDS ORDERED: cefTRIAXone 1 GM in SODIUM CHLORIDE 0.9% MINIBAG 100 ML IV STA (06:25)
[2018-09-07] MEDS ORDERED: POLYETHYLENE GLYCOL 3350 17 GM PACKET PO PRN (06:40)
[2018-09-07 07:14] VITALS: BP 154/59
== END 2018-09-07 08:08 | disposition home or self-care (01) ==
LOC: EDUNIT# → ED 04:50
DX: N39.0 Urinary tract infection, site not specified (principal); M25.561 Pain in right knee; G35 Multiple sclerosis; I10 Essential (primary) hypertension; Z79.82 Long term (current) use of aspirin; Z98.890 Other specified postprocedural states
CPT/HCPCS: 36415; 80048; 81001; 83605; 85025; 87077; 87086; 87181; 96365; 99283; 99284; A9270; 81003

== ENCOUNTER 2019-02-07 08:46 | Outpatient (CLI) | payer MEDICARE, BC ==
--- NOTE | 2019-02-07 12:47 | Ultrasound Report ---
Reason: NEUROGENIC BLADDER Procedure Date: 02/07/2019 Accession Number: [id number] / [id number] Procedure: US - Retroperitoneal CPT Code: FULL RESULT: EXAM: RENAL ULTRASOUND EXAM DATE: 02/07/2019 09:48 AM. CLINICAL HISTORY: NEUROGENIC BLADDER. COMPARISON: RETROPERITONEAL 09/03/2017 11:35 AM. TECHNIQUE: Real-time scanning was performed with static images obtained. FINDINGS: Right Kidney: 10.6 x 4.3 x 4 cm. Normal echotexture with no stones, contour-deforming masses, or hydronephrosis. Left Kidney: 11.8 x 6.2 x 5.1 cm. Normal echotexture with no stones, contour-deforming masses, or hydronephrosis. Bladder: Bilateral jets seen. The prevoid bladder volume was 207 cc. The postvoid bladder volume was 0 cc. Other: None. IMPRESSION: Normal renal ultrasound. RADIA
== END 2019-02-07 08:47 | disposition home or self-care (01) ==
LOC: DI 08:46
PROVIDERS: ATTEND Urology
DX: N31.9 Neuromuscular dysfunction of bladder, unspecified (principal)
CPT/HCPCS: 76770

== ENCOUNTER 2019-11-08 07:17 | Outpatient (CLI) | payer MEDICARE, BC ==
[2019-11-08 15:11] LABS: BASOPHILS % (AUTO) 0.9 %; EOSINOPHILS # (AUTO) 0.2 10^3/uL (0.0-0.7); EOSINOPHILS % (AUTO) 5.2 %; HGB - HEMOGLOBIN 13.6 g/dL (12.0-16.0); LYMPHOCYTES # (AUTO) 0.6 10^3/uL (1.5-3.5); MEAN CORPUSCULAR HEMOGLOBIN 32.9 pg (27.0-31.0); MEAN CORPUSCULAR HGB CONC 33.4 g/dL (32.0-36.0); MEAN CORPUSCULAR VOLUME 98.3 fL (81.0-99.0); MEAN PLATELET VOLUME 10.1 fL (7.9-10.8); MONOCYTES # (AUTO) 0.4 10^3/uL (0.0-1.0); MONOCYTES % (AUTO) 12.8 %; NEUTROPHILS # (AUTO) 2.2 10^3/uL (1.5-6.6); NEUTROPHILS % (AUTO) 64.8 %; PLT - PLATELET COUNT 345 10^3/uL (130-450); RED BLOOD COUNT 4.14 10^6/uL (4.20-5.40); RED CELL DISTRIBUTION WIDTH 11.9 % (12.0-15.0); WHITE BLOOD COUNT 3.4 x10^3/uL (4.8-10.8)
[2019-11-08 15:37] LABS: ALBUMIN 4.6 g/dL (3.2-5.5); ALBUMIN/GLOBULIN RATIO 1.4 (1.0-2.2); ALKALINE PHOSPHATASE 69 IU/L (42-121); ALT ALANINE AMINOTRANSFERASE 26 IU/L (10-60); AST ASPARTATE AMINOTRANSFERASE 24 IU/L (10-42); BILIRUBIN,TOTAL 0.6 mg/dL (0.2-1.0); BUN - BLOOD UREA NITROGEN 11 mg/dL (6-20); CALCIUM 9.5 mg/dL (8.5-10.3); CARBON DIOXIDE - CO2 30 mmol/L (21-32); CHLORIDE 96 mmol/L (101-111); CHOL/HDL RATIO 2.3 (<4.4); CHOLESTEROL 192 mg/dL; CREATININE 0.6 mg/dL (0.4-1.0); GLUCOSE 97 mg/dL (70-100); HDL CHOLESTEROL 83 mg/dL; LDL CHOLESTEROL,CALCULATED 88 mg/dL; LDL/HDL RATIO 1.1 (<4.4); SODIUM 137 mmol/L (135-145); TOTAL PROTEIN 7.8 g/dL (6.7-8.2); VLDL CHOLESTEROL 21 mg/dL
== END 2019-11-08 07:18 | disposition home or self-care (01) ==
LOC: LAB.S 07:17
PROVIDERS: ATTEND Registered Nurse
DX: D64.9 Anemia, unspecified (principal); I10 Essential (primary) hypertension; E78.5 Hyperlipidemia, unspecified; F32.9 Major depressive disorder, single episode, unspecified
CPT/HCPCS: 36415; 80053; 80061; 83721; 84443; 85025

== ENCOUNTER 2020-02-13 15:43 | Outpatient (CLI) | payer MEDICARE, BC ==
--- NOTE | 2020-02-13 17:11 | Ultrasound Report ---
PROCEDURE: Retroperitoneal INDICATIONS: NEUROGENIC BLADDER TECHNIQUE: Real-time scanning was performed of the retroperitoneal organs, with image documentation. COMPARISON: Renal ultrasound 02/07/2019 FINDINGS: Kidneys: Kidneys are normal in size. Right kidney measures 10.4 cm long; left kidney measures 1.4 c m long. Right renal cortical thickness is 10.6 cm; left renal cortical thickness is 1.5 cm. No obie d masses, hydronephrosis, or nephrolithiasis. Bladder: Prevoid volume 97 cc. Postvoid residual 0. Bilateral ureteral jets are identified. No focal masses are identified. IMPRESSION: No renal obstruction. Bladder is grossly unremarkable. Reviewed by: Madelin Melton MD on 02/13/2020 5:10 PM PDT Approved by: Madelin Melton MD on 02/13/2020 5:10 PM PDT Station ID: [id number]
== END 2020-02-13 15:44 | disposition home or self-care (01) ==
LOC: DI 15:43
PROVIDERS: ATTEND Urology
DX: N31.9 Neuromuscular dysfunction of bladder, unspecified (principal)
CPT/HCPCS: 76770

== ENCOUNTER 2020-05-13 07:46 | Outpatient (CLI) | payer MEDICARE, BC ==
[2020-05-13 16:02] LABS: EOSINOPHILS # (AUTO) 0.2 10^3/uL (0.0-0.7); EOSINOPHILS % (AUTO) 5.7 %; HGB - HEMOGLOBIN 13.4 g/dL (12.0-16.0); LYMPHOCYTES # (AUTO) 0.6 10^3/uL (1.5-3.5); LYMPHOCYTES % (AUTO) 20.7 %; MEAN CORPUSCULAR HEMOGLOBIN 32.5 pg (27.0-31.0); MEAN CORPUSCULAR HGB CONC 32.8 g/dL (32.0-36.0); MEAN CORPUSCULAR VOLUME 99.3 fL (81.0-99.0); MEAN PLATELET VOLUME 10.1 fL (7.9-10.8); MONOCYTES # (AUTO) 0.3 10^3/uL (0.0-1.0); MONOCYTES % (AUTO) 10.7 %; NEUTROPHILS # (AUTO) 1.9 10^3/uL (1.5-6.6); NEUTROPHILS % (AUTO) 61.6 %; PLT - PLATELET COUNT 321 10^3/uL (130-450); RED BLOOD COUNT 4.12 10^6/uL (4.20-5.40); RED CELL DISTRIBUTION WIDTH 11.7 % (12.0-15.0)
== END 2020-05-13 07:47 | disposition home or self-care (01) ==
LOC: LAB.S 07:46
PROVIDERS: ATTEND Psychiatry & Neurology Neurology
DX: G35 Multiple sclerosis (principal)
CPT/HCPCS: 36415; 81599; 85025; 86711

== ENCOUNTER 2020-05-14 13:17 | Outpatient (CLI) | payer MEDICARE, BC ==
--- NOTE | 2020-05-16 09:38 | Mammography Report ---
BILATERAL DIGITAL SCREENING MAMMOGRAM: 05/14/2020 CLINICAL: Routine screening. Family history of breast cancer. Comparison is made to exams dated: 03/27/2019 mammogram, 10/04/2017 mammogram, 07/13/2016 mammogram, 03/2016 mammogram, and 06/05/2014 mammogram - [facility]. There are scattered fibroglandular [place] ents in both breasts. No significant masses, calcifications, or other findings are seen in either breast. There has been no significant interval change. IMPRESSION: NEGATIVE There is no mammographic evidence of malignancy. A 1 year screening mammogram is recommended. This exam was interpreted at Station ID: [id number]. NOTE: For mammograms, a report in lay terms will be sent to the patient. Approximately 15% of breast malignancies will not be visualized mammographically. In the management of a palpable breast mass, a negative mammogram must not discourage biopsy of a clinically suspicious lesion. Electronically Signed By: Lars Harrison M.D. ddp/penrad:05/15/2020 11:20:44 ACR BI-RADS Category 1: Negative 3341F PARENCHYMAL PATTERN: (A) - The breast(s) demonstrate(s) scattered fibroglandular densities. BI-RADS CATEGORY: (1) - 1 RECOMMENDATION: (ANNUAL) - Recommend routine annual screening mammography. [id number] 1 year screening LATERALITY: (B)
== END 2020-05-14 13:18 | disposition home or self-care (01) ==
LOC: DI 13:17
DX: Z12.31 Encounter for screening mammogram for malignant neoplasm of breast (principal)
CPT/HCPCS: 77067

== ENCOUNTER 2020-06-03 11:11 | Emergency (ER) | payer MEDICARE, BC ==
[2020-06-03 11:31] VITALS: BP 151/91
[2020-06-03 12:12] LABS: BASOPHILS % (AUTO) 0.2 %; EOSINOPHILS % (AUTO) 0.2 %; HGB - HEMOGLOBIN 13.6 g/dL (12.0-16.0); LYMPHOCYTES # (AUTO) 0.5 10^3/uL (1.5-3.5); LYMPHOCYTES % (AUTO) 9.1 %; MEAN CORPUSCULAR HEMOGLOBIN 32.9 pg (27.0-31.0); MEAN CORPUSCULAR HGB CONC 35.2 g/dL (32.0-36.0); MEAN CORPUSCULAR VOLUME 93.5 fL (81.0-99.0); MEAN PLATELET VOLUME 9.7 fL (7.9-10.8); MONOCYTES # (AUTO) 0.4 10^3/uL (0.0-1.0); MONOCYTES % (AUTO) 7.3 %; NEUTROPHILS # (AUTO) 4.1 10^3/uL (1.5-6.6); PLT - PLATELET COUNT 291 10^3/uL (130-450); RED BLOOD COUNT 4.13 10^6/uL (4.20-5.40); RED CELL DISTRIBUTION WIDTH 11.3 % (12.0-15.0); WHITE BLOOD COUNT 4.9 x10^3/uL (4.8-10.8)
[2020-06-03 12:23] LABS: ALBUMIN 4.8 g/dL (3.2-5.5); ALBUMIN/GLOBULIN RATIO 1.5 (1.0-2.2); BILIRUBIN,TOTAL 0.7 mg/dL (0.2-1.0); CALCIUM 9.5 mg/dL (8.5-10.3); CREATININE 0.6 mg/dL (0.4-1.0)
== END 2020-06-03 13:23 | disposition left against medical advice (07) ==
LOC: ED 11:11
DX: Z53.21 Procedure and treatment not carried out due to patient leaving prior to being seen by health care provider (principal)
CPT/HCPCS: 36415; 80053; 83690; 85025

== ENCOUNTER 2020-08-14 07:44 | Outpatient (CLI) | payer MEDICARE, BC ==
[2020-08-14 14:34] LABS: BASOPHILS # (AUTO) 0.1 10^3/uL (0.0-0.1); BASOPHILS % (AUTO) 1.2 %; EOSINOPHILS # (AUTO) 0.3 10^3/uL (0.0-0.7); EOSINOPHILS % (AUTO) 6.6 %; HCT - HEMATOCRIT 40.5 % (37.0-47.0); HGB - HEMOGLOBIN 13.1 g/dL (12.0-16.0); LYMPHOCYTES % (AUTO) 24.1 %; MEAN CORPUSCULAR HEMOGLOBIN 31.4 pg (27.0-31.0); MEAN CORPUSCULAR HGB CONC 32.3 g/dL (32.0-36.0); MEAN CORPUSCULAR VOLUME 97.1 fL (81.0-99.0); MONOCYTES # (AUTO) 0.4 10^3/uL (0.0-1.0); MONOCYTES % (AUTO) 9.6 %; NEUTROPHILS # (AUTO) 2.5 10^3/uL (1.5-6.6); NEUTROPHILS % (AUTO) 58.5 %; PLT - PLATELET COUNT 375 10^3/uL (130-450); RED BLOOD COUNT 4.17 10^6/uL (4.20-5.40); RED CELL DISTRIBUTION WIDTH 11.9 % (12.0-15.0); WHITE BLOOD COUNT 4.3 x10^3/uL (4.8-10.8)
== END 2020-08-14 07:45 | disposition home or self-care (01) ==
LOC: LAB.S 07:44
PROVIDERS: ATTEND Psychiatry & Neurology Neurology
DX: G35 Multiple sclerosis (principal)
CPT/HCPCS: 36415; 85025

== ENCOUNTER 2021-03-19 15:47 | Outpatient (CLI) | payer MEDICARE, BC ==
--- NOTE | 2021-03-20 09:15 | Ultrasound Report ---
INDICATIONS: NEUROGENIC BLADDER TECHNIQUE: Real-time scanning was performed of the kidneys and bladder, with image documentation. COMPARISON: 02/13/2020 FINDINGS: Kidneys: Kidneys are normal in size. Right kidney measures 10.8 cm long; left kidney measures 11.0 cm long. Right renal cortical thickness is 1.6 cm; left renal cortical thickness is 1.8 cm. Renal c ortical echotexture is normal. No hydronephrosis or nephrolithiasis. No suspicious solid mass lesio ns. Bladder: Pre-void bladder volume is 286.9 mL. Post-void residual is 4.6 mL. Pre-void images demons trate no intraluminal masses or stones. On pre-void images, bilateral ureteral jets are noted with c olor Doppler interrogation. (Of note, ureteral jets may not be detectable in up to 25% of cases due to insufficient differences in specific gravity between ureteral and bladder urine). Miscellaneous: No free pelvic fluid. IMPRESSION: Unremarkable ultrasound of the kidneys and bladder. Reviewed by: Cuco Negro MD on 03/20/2021 9:14 AM PDT Approved by: Cuco Negro MD on 03/20/2021 9:14 AM PDT Station ID: [id number]
== END 2021-03-19 15:48 | disposition home or self-care (01) ==
LOC: DI 15:47
PROVIDERS: ATTEND Urology
DX: N31.9 Neuromuscular dysfunction of bladder, unspecified (principal)

== ENCOUNTER 2021-06-09 07:19 | Outpatient (CLI) | payer MEDICARE, BC ==
[2021-06-09 14:46] LABS: BASOPHILS % (AUTO) 0.8 %; EOSINOPHILS # (AUTO) 0.2 10^3/uL (0.0-0.7); HCT - HEMATOCRIT 38.1 % (37.0-47.0); HGB - HEMOGLOBIN 12.3 g/dL (12.0-16.0); LYMPHOCYTES # (AUTO) 1.1 10^3/uL (1.5-3.5); LYMPHOCYTES % (AUTO) 29.8 %; MEAN CORPUSCULAR HEMOGLOBIN 31.2 pg (27.0-31.0); MEAN CORPUSCULAR HGB CONC 32.3 g/dL (32.0-36.0); MEAN CORPUSCULAR VOLUME 96.7 fL (81.0-99.0); MEAN PLATELET VOLUME 9.9 fL (7.9-10.8); MONOCYTES # (AUTO) 0.5 10^3/uL (0.0-1.0); MONOCYTES % (AUTO) 12.2 %; NEUTROPHILS % (AUTO) 53.2 %; PLT - PLATELET COUNT 358 10^3/uL (130-450); RED BLOOD COUNT 3.94 10^6/uL (4.20-5.40); WHITE BLOOD COUNT 3.8 x10^3/uL (4.8-10.8)
[2021-06-09 15:12] LABS: ALBUMIN/GLOBULIN RATIO 1.2 (1.0-2.2); ALKALINE PHOSPHATASE 76 IU/L (42-121); ALT ALANINE AMINOTRANSFERASE 32 IU/L (10-60); AST ASPARTATE AMINOTRANSFERASE 24 IU/L (10-42); BILIRUBIN,TOTAL 0.6 mg/dL (0.2-1.0); BUN - BLOOD UREA NITROGEN 14 mg/dL (6-20); CARBON DIOXIDE - CO2 30 mmol/L (21-32); CHLORIDE 94 mmol/L (101-111); CHOLESTEROL 187 mg/dL; CREATININE 0.6 mg/dL (0.4-1.0); GFR - MDRD 100 (>89); GLUCOSE 97 mg/dL (70-100); HDL CHOLESTEROL 63 mg/dL; LDL CHOLESTEROL,CALCULATED 105 mg/dL; LDL/HDL RATIO 1.7 (<4.4); POTASSIUM 3.7 mmol/L (3.5-5.0); SODIUM 134 mmol/L (135-145); TOTAL PROTEIN 7.3 g/dL (6.7-8.2); TRIGLYCERIDES 93 mg/dL; VLDL CHOLESTEROL 19 mg/dL
[2021-06-09 15:40] LABS: THYROID STIMULATING HORMONE 4.6 uIU/mL (0.34-5.60)
== END 2021-06-09 07:20 | disposition home or self-care (01) ==
LOC: LAB.S 07:19
PROVIDERS: ATTEND Registered Nurse
DX: K58.9 Irritable bowel syndrome, unspecified (principal); R73.01 Impaired fasting glucose; N31.9 Neuromuscular dysfunction of bladder, unspecified; I10 Essential (primary) hypertension; E78.5 Hyperlipidemia, unspecified
CPT/HCPCS: 36415; 80053; 80061; 83721; 84443; 85025

== ENCOUNTER 2022-06-09 09:44 | Outpatient (CLI) | payer MEDICARE, BC ==
--- NOTE | 2022-06-10 11:03 | Mammography Report ---
BILATERAL DIGITAL SCREENING MAMMOGRAM 3D/2D: 06/09/2022 CLINICAL: Routine screening. Family history of breast cancer. Comparison is made to exams dated: 05/14/2020 mammogram - [facility], 03/27/2019 yasmine, and 10/04/2017 mammogram - [facility]. There are scattered areas of fibroglandular density in both breasts (category b / 25%-50% glandular t issue). No significant masses, calcifications, or other findings are seen in either breast. There has been no significant interval change. IMPRESSION: NEGATIVE There is no mammographic evidence of malignancy. A 1 year screening mammogram is recommended. Based on the Tyrer Cuzick model (a risk assessment model) the patients lifetime risk is 10.7% and he r 10 year risk is 6.1%. According to the ACR, ACS, and NCCN guidelines, an annual breast MRI exam sylvia ng with mammogram is recommended if the patients lifetime risk is 20% or greater. This exam was interpreted at Station ID: [id number]. NOTE: For mammograms, a report in lay terms will be sent to the patient. Approximately 15% of breast malignancies will not be visualized mammographically. In the management of a palpable breast mass, a negative mammogram must not discourage biopsy of a clinically suspicious lesion. Electronically Signed By: Pauline man/gertrudis:06/09/2022 17:01:53 ACR BI-RADS Category 1: Negative 3341F PARENCHYMAL PATTERN: (A) - The breast(s) demonstrate(s) scattered fibroglandular densities. BI-RADS CATEGORY: (1) - 1 RECOMMENDATION: (ANNUAL) - Recommend routine annual screening mammography. [id number] 1 year screening LATERALITY: (B)
== END 2022-06-09 09:45 | disposition home or self-care (01) ==
LOC: DI.S 09:44
DX: Z12.31 Encounter for screening mammogram for malignant neoplasm of breast (principal); Z80.3 Family history of malignant neoplasm of breast

== ENCOUNTER 2022-06-11 07:02 | Outpatient (CLI) | payer MEDICARE, BC ==
[2022-06-11 14:20] LABS: BASOPHILS # (AUTO) 0.1 10^3/uL (0.0-0.1); BASOPHILS % (AUTO) 1.3 %; EOSINOPHILS # (AUTO) 0.2 10^3/uL (0.0-0.7); EOSINOPHILS % (AUTO) 4.8 %; HCT - HEMATOCRIT 38.4 % (37.0-47.0); HGB - HEMOGLOBIN 12.4 g/dL (12.0-16.0); LYMPHOCYTES # (AUTO) 1.3 10^3/uL (1.5-3.5); LYMPHOCYTES % (AUTO) 33.9 %; MEAN CORPUSCULAR HEMOGLOBIN 31.2 pg (27.0-31.0); MEAN CORPUSCULAR HGB CONC 32.3 g/dL (32.0-36.0); MEAN CORPUSCULAR VOLUME 96.5 fL (81.0-99.0); MEAN PLATELET VOLUME 9.6 fL (7.9-10.8); MONOCYTES # (AUTO) 0.4 10^3/uL (0.0-1.0); MONOCYTES % (AUTO) 10.8 %; NEUTROPHILS # (AUTO) 1.9 10^3/uL (1.5-6.6); NEUTROPHILS % (AUTO) 49.2 %; PLT - PLATELET COUNT 353 10^3/uL (130-450); RED BLOOD COUNT 3.98 10^6/uL (4.20-5.40); RED CELL DISTRIBUTION WIDTH 12.1 % (12.0-15.0); WHITE BLOOD COUNT 3.8 x10^3/uL (4.8-10.8)
[2022-06-11 14:23] LABS: ALBUMIN 3.8 g/dL (3.2-5.5); ALBUMIN/GLOBULIN RATIO 1.3 (1.0-2.2); ALKALINE PHOSPHATASE 69 IU/L (42-121); ALT ALANINE AMINOTRANSFERASE 40 IU/L (10-60); AST ASPARTATE AMINOTRANSFERASE 32 IU/L (10-42); BILIRUBIN,TOTAL 0.8 mg/dL (0.2-1.0); BUN - BLOOD UREA NITROGEN 13 mg/dL (6-20); CALCIUM 8.5 mg/dL (8.5-10.3); CARBON DIOXIDE - CO2 33 mmol/L (21-32); CHLORIDE 92 mmol/L (101-111); CHOL/HDL RATIO 2.7 (<4.4); CHOLESTEROL 184 mg/dL; CREATININE 0.7 mg/dL (0.4-1.0); GFR - MDRD 83 (>89); GLUCOSE 86 mg/dL (70-100); HDL CHOLESTEROL 68 mg/dL; LDL CHOLESTEROL,CALCULATED 95 mg/dL; LDL/HDL RATIO 1.4 (<4.4); POTASSIUM 3.8 mmol/L (3.5-5.0); SODIUM 130 mmol/L (135-145); TOTAL PROTEIN 6.7 g/dL (6.7-8.2); TRIGLYCERIDES 107 mg/dL; VLDL CHOLESTEROL 21 mg/dL
== END 2022-06-11 07:03 | disposition home or self-care (01) ==
LOC: LAB.S 07:02
PROVIDERS: ATTEND Registered Nurse
DX: I10 Essential (primary) hypertension (principal); E78.5 Hyperlipidemia, unspecified
CPT/HCPCS: 36415; 80053; 80061; 83721; 84443; 85025

== ENCOUNTER 2022-06-16 06:37 | Outpatient (CLI) | payer MEDICARE, BC ==
--- NOTE | 2022-06-16 12:12 | Ultrasound Report ---
PROCEDURE: Retroperitoneal INDICATIONS: NEUROGENIC BLADDER TECHNIQUE: Real-time scanning was performed of the kidneys and bladder, with image documentation. COMPARISON: 03/20/2021 FINDINGS: Kidneys: Kidneys are normal in size. Right kidney measures 11.2 cm long; left kidney measures 10.2 cm long. Right renal cortical thickness is 1.9 cm; left renal cortical thickness is 1.7 cm. Renal c ortical echotexture is normal. No hydronephrosis or nephrolithiasis. No suspicious solid mass lesio ns. Bladder: Pre-void bladder volume is 31.8 mL. Post-void residual is 0 mL. Pre-void images demonstra te no intraluminal masses or stones. On pre-void images, bilateral ureteral jets are noted with colo r Doppler interrogation. (Of note, ureteral jets may not be detectable in up to 25% of cases due to insufficient differences in specific gravity between ureteral and bladder urine). Miscellaneous: No free pelvic fluid. IMPRESSION: Unremarkable ultrasound of the kidneys and bladder. Reviewed by: Cuco Negro MD on 06/16/2022 12:10 PM PST Approved by: Cuco Negro MD on 06/16/2022 12:10 PM PST Station ID: [id number]
== END 2022-06-16 06:38 | disposition home or self-care (01) ==
LOC: DI 06:37
PROVIDERS: ATTEND Urology
DX: N31.9 Neuromuscular dysfunction of bladder, unspecified (principal)

== ENCOUNTER 2023-06-09 07:06 | Outpatient (CLI) | payer MEDICARE, BC ==
[2023-06-09 15:20] LABS: BASOPHILS # (AUTO) 0.1 10^3/uL (0.0-0.1); BASOPHILS % (AUTO) 1.2 %; EOSINOPHILS # (AUTO) 0.2 10^3/uL (0.0-0.7); EOSINOPHILS % (AUTO) 3.6 %; HCT - HEMATOCRIT 37.9 % (37.0-47.0); HGB - HEMOGLOBIN 12.1 g/dL (12.0-16.0); LYMPHOCYTES # (AUTO) 1.7 10^3/uL (1.5-3.5); LYMPHOCYTES % (AUTO) 33.3 %; MEAN CORPUSCULAR HEMOGLOBIN 31.6 pg (27.0-31.0); MEAN CORPUSCULAR HGB CONC 31.9 g/dL (32.0-36.0); MONOCYTES # (AUTO) 0.5 10^3/uL (0.0-1.0); MONOCYTES % (AUTO) 10.4 %; NEUTROPHILS # (AUTO) 2.6 10^3/uL (1.5-6.6); NEUTROPHILS % (AUTO) 51.3 %; PLT - PLATELET COUNT 317 10^3/uL (130-450); RED BLOOD COUNT 3.83 10^6/uL (4.20-5.40); RED CELL DISTRIBUTION WIDTH 12.5 % (12.0-15.0)
[2023-06-09 16:16] LABS: ALBUMIN/GLOBULIN RATIO 1.4 (1.0-2.2); ALKALINE PHOSPHATASE 63 IU/L (42-121); ALT ALANINE AMINOTRANSFERASE 25 IU/L (10-60); AST ASPARTATE AMINOTRANSFERASE 22 IU/L (10-42); BILIRUBIN,TOTAL 0.4 mg/dL (0.2-1.0); BUN - BLOOD UREA NITROGEN 14 mg/dL (6-20); CALCIUM 9.3 mg/dL (8.5-10.3); CARBON DIOXIDE - CO2 32 mmol/L (21-32); CHLORIDE 101 mmol/L (101-111); CHOL/HDL RATIO 2.3 (<4.4); CHOLESTEROL 174 mg/dL; CREATININE 0.6 mg/dL (0.6-1.3); GFR - MDRD 99 (>89); GLUCOSE 88 mg/dL (74-104); HDL CHOLESTEROL 76 mg/dL; LDL CHOLESTEROL,CALCULATED 80 mg/dL; LDL/HDL RATIO 1.1 (<4.4); POTASSIUM 4.4 mmol/L (3.5-4.5); SODIUM 139 mmol/L (135-145); TOTAL PROTEIN 6.8 g/dL (6.4-8.9); TRIGLYCERIDES 89 mg/dL (48-352); VLDL CHOLESTEROL 18 mg/dL
== END 2023-06-09 07:07 | disposition home or self-care (01) ==
LOC: LAB.S 07:06
PROVIDERS: ATTEND Registered Nurse
DX: I10 Essential (primary) hypertension (principal); E78.5 Hyperlipidemia, unspecified
CPT/HCPCS: 36415; 80053; 80061; 83721; 85025

== ENCOUNTER 2023-06-30 07:00 | Outpatient (CLI) | payer MEDICARE, BC ==
--- NOTE | 2023-06-30 22:13 | XRAY Report ---
PROCEDURE: Chest 2V INDICATIONS: EXPOSURE TO SECOND HAND SMOKE TECHNIQUE: 2 views of the chest were acquired. COMPARISON: None. FINDINGS: Surgical changes and devices: None. Lungs and pleura: No pleural effusions or pneumothorax. Lungs are clear. Mediastinum: Mediastinal contours appear normal. Heart size is normal. Bones and chest wall: No suspicious bony lesions. Overlying soft tissues appear unremarkable. IMPRESSION: No acute cardiopulmonary process. Reviewed by: Luis Felipe Hernandez MD on 06/30/2023 10:11 PM [facility] Approved by: Luis Felipe Hernandez MD on 06/30/2023 10:11 PM [facility] Station ID: [id number]
== END 2023-06-30 23:59 | disposition home or self-care (01) ==
LOC: DI.S 07:00
PROVIDERS: ATTEND Registered Nurse
DX: Z77.22 Contact with and (suspected) exposure to environmental tobacco smoke (acute) (chronic) (principal)

== ENCOUNTER 2023-06-30 08:08 | Outpatient (CLI) | payer MEDICARE, BC ==
[2023-06-30 15:54] LABS: THYROID STIMULATING HORMONE 2.74 uIU/mL (0.34-5.60)
== END 2023-06-30 08:09 | disposition home or self-care (01) ==
LOC: DI.S 08:08
PROVIDERS: ATTEND Registered Nurse
DX: Z13.29 Encounter for screening for other suspected endocrine disorder (principal); Z77.22 Contact with and (suspected) exposure to environmental tobacco smoke (acute) (chronic)
CPT/HCPCS: 36415; 84443